=== PATIENT | male | born 1985 | race Caucasian/White ===

== ENCOUNTER 2017-06-08 18:36 | Emergency (ER) | payer OTHER ==
--- NOTE | 2017-06-08 20:53 | PD ---
HPI Chief Complaint: Psychiatric Symptoms Time Seen by Provider: 19:55 Travel History International Travel<30 days: No Contact w/Intl Traveler<30days: No History of Present Illness HPI Patient is a 31-year-old male that presented from [facility] in [place] for psychiatric evaluation. Patient is under a Farias for making suicidal ideations. He states that he does not have a current plan and has no prior attempts. He does report wanting to kill himself. Patient states for the last 6 weeks his symptoms have worsened. He reports alcohol addiction and the need to drink every 2-3 hours to avoid withdrawal. He reports increased anxiety secondary to this addiction. He has been drinking for approximately 10 years, he states he drinks 1/5 of vodka daily. He has no family, his parents are . Patient is currently undomiciled and is staying with friends. Symptom onset has been gradual, exacerbated with alcohol use. PFSH Past Medical History Medical History: Denies Significant Hx Social History Alcohol Use: Yes Tobacco Use: No Substance Use: No Allergies-Medications (Allergen,Severity, Reaction): Coded Allergies: No Known Allergies (Verified Allergy, Unknown, 06/08/17) Review of Systems Except as stated in HPI: all other systems reviewed are Neg Psychiatric: Positive: Depression, Suicidal Ideations, Substance Abuse Physical Exam Narrative GENERAL: Well-developed, well-nourished, alert male. Resting comfortably in no acute distress. SKIN: Warm and dry. HEAD: Atraumatic. Normocephalic. EYES: Pupils equal and round. No scleral icterus. No injection or drainage. ENT: No nasal bleeding or discharge. Mucous membranes pink and moist. NECK: Trachea midline. No JVD. CARDIOVASCULAR: Regular rate and rhythm. RESPIRATORY: No accessory muscle use. Clear to auscultation. Breath sounds equal bilaterally. GASTROINTESTINAL: Abdomen soft, non-tender, nondistended. Hepatic and splenic margins not palpable. MUSCULOSKELETAL: Extremities without clubbing, cyanosis, or edema. No obvious deformities. NEUROLOGICAL: Awake and alert. No obvious cranial nerve deficits. Motor grossly within normal limits. Five out of 5 muscle strength in the arms and legs. Normal speech. PSYCHIATRIC: Depressed mood and affect; insight and judgment normal. Data Data Orders Orders Psych Screen (06/08/17 19:52) [facility] Medical Decision Making Medical Screen Exam Complete: Yes Emergency Medical Condition: Yes Differential Diagnosis Mood disorder versus substance abuse versus depression versus anxiety versus other Narrative Course Patient is a 31-year-old male transferred from [facility] in [facility] under Farias act for psychiatric evaluation secondary to substance abuse. Medical records reviewed. Psych screen ordered. Patient was seen and evaluated in J pod. Patient is medically cleared for psychiatric evaluation. [facility] protocol initiated. Diagnosis Primary Impression: Medical clearance for psychiatric admission Condition: Stable Asia Zambrano Jun 08, 2017 20:53
[2017-06-08 20:55] VITALS: BP 142/101; PULSE 115; RESP 18; TEMP 97.2; O2SAT 97
[2017-06-08] MEDS ORDERED: LORazepam 2 MG TAB PO PRN (23:45)
[2017-06-08] MEDS ORDERED: ACETAMINOPHEN 325 MG TAB PO PRN (23:45)
[2017-06-08] MEDS ORDERED: ONDANSETRON ODT 4 MG TAB PO PRN (23:45)
[2017-06-08] MEDS ORDERED: LORazepam 2 MG/ML VIAL IV PUSH PRN ×4 (23:45)
[2017-06-08] MEDS ORDERED: FLUMAZENIL 0.5 MG/5 ML VIAL IV PUSH PRN (23:45)
[2017-06-09 00:07] VITALS: BP 122/79; PULSE 79; RESP 12
[2017-06-09 02:47] VITALS: BP 118/77; PULSE 95; RESP 18
[2017-06-09] MEDS: LORazepam 1 MG TAB PO PRN ×2 (04:50→12:27)
[2017-06-09 06:13] VITALS: BP 108/79; PULSE 88; RESP 17; O2SAT 97
[2017-06-09 12:31] VITALS: BP 123/82; PULSE 101; RESP 18; O2SAT 99
--- NOTE | 2017-06-09 13:41 | PD ---
Physical Exam Time Seen by Provider: 13:[address] Barker has evaluated the patient, lifted lang act and clear the patient for discharge. Data Data Last Documented VS Vital Signs Date Time Temp Pulse Resp B/P (MAP) Pulse Ox O2 Delivery O2 Flow Rate FiO2 06/09/17 12:31 101 18 123/82 (96) 99 Room Air 06/08/17 20:55 97.2 Orders Orders Psych Screen (06/08/17 19:52) Alcohol Withdrawal Asmt-Ciwa ONCE (06/08/17 23:38) Ondansetron Odt (Zofran Odt) (06/08/17 23:45) Acetaminophen (Tylenol) (06/08/17 23:45) Flumazenil Inj (Romazicon Inj) (06/08/17 23:45) Lorazepam (Ativan) (06/08/17 23:45) Lorazepam Inj (Ativan Inj) (06/08/17 23:45) Lorazepam (Ativan) (06/08/17 23:45) Lorazepam Inj (Ativan Inj) (06/08/17 23:45) Lorazepam Inj (Ativan Inj) (06/08/17 23:45) Lorazepam Inj (Ativan Inj) (06/08/17 23:45) Diet Regular Basic (06/09/17 Breakfast) Diet Regular Basic (06/09/17 Lunch) MDM Supervised Visit with ARMANI: No Narrative Course Dr. Barker has evaluated the patient, lifted lang act and clear the patient for discharge. Patient contracts safety. Denies suicidal or homicidal ideations. Patient will be provided community resource packet to /[facility] for follow-up. Has friends and family for support. Patient was medically cleared by alternate provider prior to psych screening. Patient has been evaluated by psychiatry and and is now cleared for discharge. Diagnosis Primary Impression: Alcohol abuse Referrals: [facility] (Out patient) [facility] Primary Care Physician Psychiatrist Heladio [facility] Patient Instructions: Abuse of Alcohol (ED), Alcohol Dependence (ED), Alcohol Intoxication (ED), General Instructions Additional Instruction: Contract safety to your self and others Stop drinking alcohol Follow-up with psychiatry Follow-up with primary care provider Follow-up with Jer Reese Return to the emergency department immediately with worsening of symptoms Med/Other Pt SpecificInfo: No Change to Meds, No Meds Exist/No RX given Disposition: 01 DISCHARGE HOME Condition: Stable Funmi Mata Jun 09, 2017 13:41
--- NOTE | 2017-06-09 14:48 | PD.PSY.CON ---
Provisional Diagnosis Admission Date [place] I. Alcohol induced mood disorder, alcohol use disorder History of Present Illness Service Psychiatry Consult Requested By ER team Reason for Consult Farias act Primary Care Physician No Primary Care Physician NEMESIO Patient is a 31-year-old male, homeless, single, no family or social support, unemployed, with psychiatric history of depression and anxiety, alcohol use disorder, no previous psychiatric hospitalizations, no previous suicidal attempts, no significant medical history, who presented from [facility] in [place] for psychiatric evaluation. Patient is under a Farias for making suicidal ideations. He states that he does not have a current plan and has no prior attempts. He does report wanting to kill himself. Patient states for the last 6 weeks his symptoms have worsened. He reports alcohol addiction and the need to drink every 2-3 hours to avoid withdrawal. He reports increased anxiety secondary to this addiction. He has been drinking for approximately 10 years, he states he drinks 1/5 of vodka daily. On the psychiatric evaluation today the patient is taking, with mild tremors and sweating. Patient denies suicidal and homicidal ideation, he denies visual and auditory hallucinations. The patient says that all he wants is go to detox today. Patient agrees to be sent to [facility]. Past Family Social History Coded Allergies: No Known Allergies (Verified Allergy, Unknown, 06/08/17) Family Psych History No family psychiatric history Social History Patient was born and raised in [place], he is homeless, single, unemployed, his highest level of education is high school Physical Exam Vital Signs Vital Signs Date Time Temp Pulse Resp B/P (MAP) Pulse Ox O2 Delivery O2 Flow Rate FiO2 06/09/17 14:02 06/09/17 12:31 101 18 99 Room Air 06/08/17 20:55 97.2 Mental Status Examination Appearance: Appropriate Consciousness: Alert Orientation: x4 Motor Activity: Normal gait Speech: Unremarkable Language: Adequate Fund of Knowledge: Adequate Attention and Concentration: Adequate Memory: Unremarkable Mood: Appropriate Affect: Appropriate Thought Process & Associations: Intact Thought Content: Appropriate Hallucination Type: None Delusion Type: None Suicidal Ideation: No Suicidal Plan: No Suicidal Intention: No Homicidal Ideation: No Homicidal Plan: No Homicidal Intention: No Insight: Adequate Judgment: Adequate Assessment & Plan Problem List: (1) Alcohol abuse with alcohol-induced mood disorder ICD Codes: F10.14 - Alcohol abuse with alcohol-induced mood disorder Assessment & Plan: At the moment of this evaluation the patient denies depression, denies suicidal and homicidal ideation, he denies visual and auditory hallucinations. The patient is motivated to be discharged to [facility] for detox. I would prescribed Ativan 2 mg by mouth stat for withdrawal symptoms. Farias act will be lifted. Patient will be transferred to [facility]. Assessment & Plan Estimated LOS: Brandon Ly MD Jun 09, 2017 14:48
== END 2017-06-09 14:06 | disposition home or self-care (01) ==
LOC: NEDAMB 18:36 → NEPJ 06-09 14:06
DX: F10.20 Alcohol dependence, uncomplicated (principal)
CPT/HCPCS: 96374; 99284; J2060

== ENCOUNTER 2017-07-03 22:30 | Inpatient (IN) | payer SELFPAY ==
[~2017-07-03] VITALS: Ht 190.5 cm; Wt 86.0 kg
[2017-07-03 22:35] VITALS: BP 154/103; PULSE 104; RESP 16; O2SAT 100
[2017-07-03] MEDS ORDERED: SODIUM CHLORIDE 0.9% FLUSH 10 ML FLUSH IV FLUSH PRN (22:45)
--- NOTE | 2017-07-03 23:08 | RADRPT ---
EXAM DATE/TIME: 07/03/2017 22:50 [facility] COMPARISON: No previous studies available for comparison. INDICATIONS : Altered mental status; ETOH. RADIATION DOSE: 56.35 CTDIvol (mGy) MEDICAL HISTORY : None SURGICAL HISTORY : None. ENCOUNTER: Initial ACUITY: 1 day PAIN SCALE: Non-responsive LOCATION: cranial TECHNIQUE: Multiple contiguous axial images were obtained of the head. Using automated exposure control and adj ustment of the mA and/or kV according to patient size, radiation dose was kept as low as reasonably a chievable to obtain optimal diagnostic quality images. DICOM format image data is available electro nically for review and comparison. FINDINGS: The patient's head is canted in the gantry creating asymmetries. CEREBRUM: The ventricles and sulci are prominent suggesting mild central and cortical atrophy. No evidence of midline shift, mass lesion, hemorrhage or acute infarction. No extra-axial fluid collections are see n. POSTERIOR FOSSA: The cerebellum and brainstem are intact. The 4th ventricle is midline. The cerebellopontine angle i s unremarkable. EXTRACRANIAL: The visualized portion of the orbits is intact. SKULL: The calvaria is intact. No evidence of skull fracture. CONCLUSION: Mild atrophy. No acute findings in the brain. Cassius Sanchez MD on July 03, 2017 at 23:03 Board Certified Radiologist. This report was verified electronically.
[2017-07-03] MEDS ORDERED: ONDANSETRON HCL 4 MG/2 ML VIAL IV PUSH ONE (23:15)
[2017-07-03 23:25] VITALS: O2SAT 99
[2017-07-03 23:29] LABS: AUTOMATED NEUTROPHIL # 10.6 TH/MM3 (1.8-7.7); BASOPHIL % 0.3 % (0.0-2.0); EOSINOPHIL % 0.1 % (0.0-4.0); HEMATOCRIT 32.6 % (39.0-51.0); HEMOGLOBIN 11.6 GM/DL (13.0-17.0); LYMPH % 4.7 % (9.0-44.0); LYMPHOCYTE # 0.6 TH/MM3 (1.0-4.8); MEAN CELL VOLUME 96.5 FL (80.0-100.0); MEAN CORPUSCULAR HEMOGLOBIN 34.3 PG (27.0-34.0); MEAN CORPUSCULAR HGB CONC 35.6 % (32.0-36.0); MEAN PLATELET VOLUME 7.3 FL (7.0-11.0); MONO % 8.1 % (0.0-8.0); NEUT % 86.8 % (16.0-70.0); PLATELET COUNT 280 TH/MM3 (150-450); RED BLOOD COUNT 3.37 MIL/MM3 (4.50-5.90); RED CELL DISTRIBUTION WIDTH 13.6 % (11.6-17.2); WHITE BLOOD COUNT 12.3 TH/MM3 (4.0-11.0)
--- NOTE | 2017-07-03 23:31 | PD ---
HPI Chief Complaint: Alcohol/Drug Intoxication Time Seen by Provider: 22:35 Travel History International Travel<30 days: No Contact w/Intl Traveler<30days: No Traveled to known affect area: No History of Present Illness HPI 31-year-old male brought in by ambulance after being found asleep on the hospital grounds. The patient does not provide any history to EMS. Upon arrival he is awake, however seems to be avoiding any interaction. He does tell me his name and admits to drinking alcohol today. He does not provide any further history. [facility] Social History Alcohol Use: Yes Tobacco Use: No Substance Use: Yes Allergies-Medications (Allergen,Severity, Reaction): Coded Allergies: No Known Allergies (Verified Allergy, Unknown, 06/08/17) Reported Meds & Prescriptions Reported Meds & Active Scripts Active Active Prescriptions or Reported Medications Unobtainable Review of Systems ROS Limitations: Intoxication Physical Exam Narrative GENERAL: Well-developed, well-nourished, awake, appears intoxicated, no apparent distress. SKIN: Focused skin assessment warm/dry. No lacerations, abrasions, or ecchymosis. HEAD: Atraumatic. Normocephalic. EYES: Pupils equal, round, 3 mm, reactive to light. No scleral icterus. No injection or drainage. ENT: No nasal bleeding or discharge. Mucous membranes pink and moist. NECK: Trachea midline. No JVD. No nuchal rigidity. CARDIOVASCULAR: Regular rate and rhythm. RESPIRATORY: No accessory muscle use. Clear to auscultation. Breath sounds equal bilaterally. GASTROINTESTINAL: Abdomen soft, non-tender, nondistended. MUSCULOSKELETAL: No obvious deformities. No clubbing. No cyanosis. No edema. NEUROLOGICAL: Awake and alert. No obvious cranial nerve deficits. Motor grossly within normal limits. Normal speech. PSYCHIATRIC: Intoxicated Data Data Last Documented VS Vital Signs Date Time Temp Pulse Resp B/P (MAP) Pulse Ox O2 Delivery O2 Flow Rate FiO2 07/04/17 00:34 98.8 07/03/17 23:25 99 Room Air 07/03/17 22:35 104 16 154/103 (120) Orders Orders Complete Blood Count With Diff (07/03/17 22:35) Comprehensive Metabolic Panel (07/03/17 22:35) Prothrombin Time / Inr (Pt) (07/03/17 22:35) Act Partial Throm Time (Ptt) (07/03/17 22:35) Iv Access Insert/Monitor (07/03/17 22:35) Ecg Monitoring (07/03/17 22:35) Oximetry (07/03/17 22:35) Sodium Chloride 0.9% Flush (Ns Flush) (07/03/17 22:45) Alcohol (Ethanol) (07/03/17 22:35) Drug Screen, Random Urine (07/03/17 22:35) Ct Brain W/O Iv Contrast(Rout) (07/03/17 ) Ondansetron Inj (Zofran Inj) (07/03/17 23:15) Potassium Chlor 20 Meq Premix (Kcl 20 Me (07/04/17 00:15) Sodium Chlor 0.9% 1000 Ml Inj (Ns 1000 M (07/04/17 00:11) Arterial Blood Gas (Abg) (07/04/17 ) Salicylates (Aspirin) (07/04/17 01:03) Labs Laboratory Tests Test 07/03/17 22:19 07/03/17 23:59 07/04/17 00:40 White Blood Count 12.3 TH/MM3 Red Blood Count 3.37 MIL/MM3 Hemoglobin 11.6 GM/DL Hematocrit 32.6 % Mean Corpuscular Volume 96.5 FL Mean Corpuscular Hemoglobin 34.3 PG Mean Corpuscular Hemoglobin Concent 35.6 % Red Cell Distribution Width 13.6 % Platelet Count 280 TH/MM3 Mean Platelet Volume 7.3 FL Neutrophils (%) (Auto) 86.8 % Lymphocytes (%) (Auto) 4.7 % Monocytes (%) (Auto) 8.1 % Eosinophils (%) (Auto) 0.1 % Basophils (%) (Auto) 0.3 % Neutrophils # (Auto) 10.6 TH/MM3 Lymphocytes # (Auto) 0.6 TH/MM3 Monocytes # (Auto) 1.0 TH/MM3 Eosinophils # (Auto) 0.0 TH/MM3 Basophils # (Auto) 0.0 TH/MM3 CBC Comment DIFF FINAL Differential Comment Prothrombin Time 11.8 SEC Prothromb Time International Ratio 1.2 RATIO Activated Partial Thromboplast Time 26.8 SEC Blood Urea Nitrogen 17 MG/DL Creatinine 1.24 MG/DL Random Glucose 188 MG/DL Total Protein 7.6 GM/DL Albumin 3.0 GM/DL Calcium Level 9.1 MG/DL Alkaline Phosphatase 134 U/L Aspartate Amino Transf (AST/SGOT) 83 U/L Alanine Aminotransferase (ALT/SGPT) 54 U/L Total Bilirubin 1.4 MG/DL Sodium Level 123 MEQ/L Potassium Level 2.5 MEQ/L Chloride Level 72 MEQ/L Carbon Dioxide Level 32.5 MEQ/L Anion Gap 19 MEQ/L Estimat Glomerular Filtration Rate 68 ML/MIN Ethyl Alcohol Level LESS THAN 3 MG/DL Urine Opiates Screen NEG Urine Barbiturates Screen NEG Urine Amphetamines Screen NEG Urine Benzodiazepines Screen NEG Urine Cocaine Screen NEG Urine Cannabinoids Screen POS Blood Gas Puncture Site RT RADIAL Blood Gas Patient Temperature 98.6 Blood Gas HCO3 39 mmol/L Blood Gas Base Excess 15.9 mmol/L Blood Gas Oxygen Saturation 94 % Arterial Blood pH 7.61 Arterial Blood Partial Pressure CO2 39 mmHg Arterial Blood Partial Pressure O2 71 mmHG Arterial Blood Oxygen Content 14.6 Vol % Arterial Blood Carboxyhemoglobin 1.6 % Arterial Blood Methemoglobin 0.5 % Blood Gas Hemoglobin 11.0 G/DL Oxygen Delivery Device ROOM AIR Blood Gas Inspired Oxygen 21 % [facility] Medical Decision Making Medical Screen Exam Complete: Yes Emergency Medical Condition: Yes Medical Record Reviewed: Yes Differential Diagnosis Alcohol intoxication, drug intoxication, intracranial abnormality, metabolic abnormality Narrative Course Initial vital signs show heart rate 104, blood pressure 154/103, pulse ox 99% on room air CBC: WBC 12.3, hemoglobin 11.6, hematocrit 32.6, platelets 280, neutrophils 86%. CMP is remarkable for sodium 123, potassium 2.5, chloride 72, bicarb 32.5, anion gap 19, random glucose 188. Alcohol level is negative. CT head: Mild atrophy. No acute findings in the brain. Patient is responsive to deep painful stimuli. There is no nuchal rigidity on exam. Again he has not provided any history. He does tell me his name. There are no focal findings on exam. ABG shows pH 7.61, PCO2 39, PO2 71, base excess 15.9, bicarb 39 40 mEq of parenteral potassium ordered. The patient was given a liter of normal saline bolus and started on normal saline 1 25 cc/h. Case was discussed with clinical trial leader Dr. Melendrez given extreme metabolic abnormality as well as altered mental status. She will admit the patient to her service. Diagnosis Primary Impression: Metabolic alkalosis Additional Impressions: Hypokalemia Hyponatremia Altered mental status Qualified Codes: R40.1 - Stupor Admitting Information Admitting Physician Requests: Admit Scripts Unable to Obtain Active Prescriptions or Reported Meds Vishnu Lynne MD Jul 03, 2017 23:31
[2017-07-03 23:48] LABS: INTERNATIONAL NORMALIZED RATIO 1.2 RATIO; PROTHROMBIN TIME - PATIENT 11.8 SEC (9.8-11.6)
[2017-07-04] VITALS (15 sets, daily range): BP systolic 113–139; BP diastolic 73–90; PULSE 72–99; RESP 14–20; TEMP 98–98.8; O2SAT 98–100
[2017-07-04 00:03] LABS: ALKALINE PHOSPHATASE 134 U/L (45-117); ALT (GPT) 54 U/L (12-78); AST (GOT) 83 U/L (15-37); BICARBONATE 32.5 MEQ/L (21.0-32.0); BLOOD UREA NITROGEN 17 MG/DL (7-18); CALCIUM 9.1 MG/DL (8.5-10.1); CHLORIDE 72 MEQ/L (98-107); CREATININE 1.24 MG/DL (0.60-1.30); GLOMERULAR FILTRATION RATE 68 ML/MIN (>89); GLUCOSE,RANDOM 188 MG/DL (74-106); TOTAL BILIRUBIN ADULT 1.4 MG/DL (0.2-1.0); TOTAL PROTEIN 7.6 GM/DL (6.4-8.2)
[2017-07-04 00:07] LABS: SODIUM (NA) 123 MEQ/L (136-145)
[2017-07-04] MEDS ORDERED: SODIUM CHLOR 0.9% 1000 ML INJ 1,000 ML IV SCH (00:11)
[2017-07-04] MEDS: POTASSIUM CHLOR 20 MEQ PREMIX 100 ML IV SCH ×6 (00:50→18:30)
[2017-07-04] MEDS ORDERED: LACTULOSE SYRUP 20 GM/30 ML CUP PO PRN (01:30)
[2017-07-04] MEDS ORDERED: BISACODYL 10 MG SUPP RECTAL PRN (01:30)
[2017-07-04] MEDS ORDERED: SENNOSIDES 8.6 MG TAB PO PRN (01:30)
[2017-07-04] MEDS ORDERED: RESP: ALBUTEROL 2.5 MG/3 ML NEB (PRN) INH (01:30)
[2017-07-04] MEDS ORDERED: MISCELLANEOUS NURSING INFORMATION XX SCH (01:30)
[2017-07-04] MEDS ORDERED: MAGNESIUM HYDROXIDE SUSP 30 ML CUP PO PRN (01:30)
[2017-07-04] MEDS ORDERED: SODIUM CHLORIDE 0.9% FLUSH 10 ML FLUSH IV FLUSH PRN ×2 (01:30→04:45)
[2017-07-04] MEDS ORDERED: CHLORHEXIDINE GLUCONATE 2 % 1 PACK (2 CLOTHS) TOP PRN (01:30)
[2017-07-04 01:48] LABS: MAGNESIUM 1.6 MG/DL (1.5-2.5)
[2017-07-04 01:53] LABS: BILIRUBIN, URINE SMALL (NEG); BLOOD, URINE NEG (NEG); CREATININE, RANDOM URINE 202.8 MG/DL; GLUCOSE,URINE TRACE mg/dL (NEG); HYALINE CAST, URINE 28 /lpf (RARE); KETONE, URINE 10 mg/dL (NEG); MUCUS URINE MANY /lpf (OCC); NITRITE,URINE NEG (NEG); PH, URINE 5.5 (5.0-8.5); SODIUM,RANDOM URINE 36 MEQ/L; SQUAMOUS EPITHELIAL CELL URINE <1 /hpf (0-5); URINE COLOR ORANGE (YELLW/STRAW); URINE LEUKOCYTE ESTERASE NEG (NEG)
[2017-07-04 02:06] LABS: ACETAMINOPHEN 17.3 MCG/ML (10.0-30.0)
[2017-07-04] MEDS: NS + KCL 20 MEQ INJ 1,000 ML IV SCH ×3 (02:20→22:21)
[2017-07-04] MEDS: CHLORHEXIDINE GLUCONATE 2 % 1 PACK (2 CLOTHS) TOP SCH (03:50)
[2017-07-04] MEDS ORDERED: LORazepam 2 MG/ML VIAL IV PUSH PRN (04:45)
[2017-07-04] MEDS ORDERED: FLUMAZENIL 0.5 MG/5 ML VIAL IV PUSH PRN (04:45)
[2017-07-04 04:46] LABS: ALKALINE PHOSPHATASE 126 U/L (45-117); ALT (GPT) 51 U/L (12-78); AST (GOT) 75 U/L (15-37); BICARBONATE 37.4 MEQ/L (21.0-32.0); BLOOD UREA NITROGEN 18 MG/DL (7-18); CALCIUM 8.8 MG/DL (8.5-10.1); CHLORIDE 75 MEQ/L (98-107); CREATININE 0.66 MG/DL (0.60-1.30); GLOMERULAR FILTRATION RATE 142 ML/MIN (>89); GLUCOSE,RANDOM 111 MG/DL (74-106); SODIUM (NA) 125 MEQ/L (136-145); TOTAL BILIRUBIN ADULT 1.4 MG/DL (0.2-1.0); TOTAL PROTEIN 6.7 GM/DL (6.4-8.2)
[2017-07-04] MEDS: ENOXAPARIN SODIUM 40 MG/0.4 ML SYRINGE SQ SCH (06:00)
[2017-07-04] MEDS: SODIUM CHLORIDE 0.9% FLUSH 10 ML FLUSH IV FLUSH SCH ×2 (08:46→22:21)
[2017-07-04] MEDS: FOLIC ACID 1 MG TAB PO SCH (08:46)
[2017-07-04] MEDS: FAMOTIDINE 20 MG TAB PO SCH ×2 (08:47→22:21)
[2017-07-04] MEDS: DOCUSATE SODIUM 50 MG/SENNA 8.6 MG TAB PO SCH ×2 (08:47→22:21)
[2017-07-04] MEDS: MULTIVITAMIN TAB PO SCH (08:47)
[2017-07-04] MEDS ORDERED: FAMOTIDINE 20 MG/2 ML VIAL IV PUSH SCH (09:00)
[2017-07-04] MEDS ORDERED: SODIUM CHLORIDE 0.9% FLUSH 10 ML FLUSH IV FLUSH SCH (09:00)
[2017-07-04] MEDS: THIAMINE INJ 100 MG in SODIUM CHLORIDE 0.9% INJ 100 ML IV SCH (09:47)
--- NOTE | 2017-07-04 10:04 | RADRPT ---
EXAM DATE/TIME: 07/04/2017 08:49 [facility] COMPARISON: No previous studies available for comparison. INDICATIONS : Increased lab values. MEDICAL HISTORY : ETOH abuse. SURGICAL HISTORY : None. ENCOUNTER: Initial ACUITY: 1 day PAIN SCORE: Nonresponsive. LOCATION: Abdomen. MEASUREMENTS: LIVER: 17.1 cm length COMMON DUCT: 4 mm RIGHT KIDNEY: 11.9 x 6.0 x 6.1 cm SPLEEN: 10.6 cm length FINDINGS: LIVER: Echogenic, apparent fatty liver without ductal dilatation. COMMON DUCT: No intraluminal mass or stone visualized. GALLBLADDER: Common gallbladder without stones or tenderness. Sludge is evident. PANCREAS: The visualized portions are within normal limits. RIGHT KIDNEY: No hydronephrosis, stone or mass. SPLEEN: No focal lesion. CONCLUSION: 1. Echogenic liver probably fatty infiltration 2. The gallbladder is prominent without stones.Sludge is evident. Armando Wolfe MD FACR on July 04, 2017 at 10:02 Board Certified Radiologist. This report was verified electronically.
--- NOTE | 2017-07-04 10:27 | HHI.HP ---
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 Documentation is being performed later 31-year-old male with past medical history of alcohol dependence, homelessness, depression, anxiety. He was brought into [facility] emergency department after he was found asleep outside in hospital. He does not provide any medical history. Review of medical records indicates he was transferred from [facility] under [facility] and evaluated by psychiatry 06/09/17. He was discharged to [facility] for detox. He is hyponatremic with sodium of 123, hypokalemic at 2.5, metabolic alkalosis at 32.5. CT brain is negative. Alcohol level was 3. Clinical care medicine consultation has been requested. Review of Systems ROS Limitations: Clinical Condition Past Family Social History Allergies: Coded Allergies: No Known Allergies (Verified Allergy, Unknown, 06/08/17) Past Medical History Anxiety Depression Alcohol abuse Tobacco abuse Marijuana abuse Past Surgical History Patient does not cooperate with providing past surgical history Reported Medications None Family History Unable to obtain secondary to patient's clinical condition. Social History Patient is not cooperative currently with providing this history. Reviewed EMR which states he drinks 1/5 of vodka daily and has been drinking heavily for 10 years. He has a history of alcohol withdrawal symptoms. He is homeless. Born and raised in [place]. Highest level of education high school. Physical Exam Vital Signs Vital Signs Date Time Temp Pulse Resp B/P (MAP) Pulse Ox O2 Delivery O2 Flow Rate FiO2 07/04/17 08:00 98.0 89 20 136/88 (104) 07/04/17 08:00 89 07/04/17 06:00 89 07/04/17 04:00 94 07/04/17 03:39 98.1 94 18 130/90 (103) 100 07/04/17 03:29 07/04/17 02:32 72 16 139/78 (98) 100 Room Air 07/04/17 01:52 98 07/04/17 01:18 79 16 139/79 (99) 98 Room Air 07/04/17 00:34 98.8 07/03/17 23:25 99 Room Air 07/03/17 22:35 104 16 154/103 (120) 100 Physical Exam GENERAL: Thin well-developed male who is lying in [facility] bed. SKIN: Warm and dry. HEAD: Atraumatic. Normocephalic. EYES: Pupils equal and round, 5 mm and reactive bilaterally.. No scleral icterus. No injection or drainage. ENT: No nasal bleeding or discharge. Mucous membranes pink and moist. NECK: Trachea midline. No JVD. No meningismus CARDIOVASCULAR: Regular rate and rhythm. No murmurs rubs or gallops. RESPIRATORY: No accessory muscle use. Clear to auscultation. Breath sounds equal bilaterally. GASTROINTESTINAL: Abdomen soft, non-tender, nondistended. Bowel sounds present. Hepatic and splenic margins not palpable. MUSCULOSKELETAL: Extremities without clubbing, cyanosis, or edema. No obvious deformities. NEUROLOGICAL: Eyes are open. He mumbles a few words; says he is "all right". Does not answer questions of orientation. Moves all extremities but not to command. Localizes bilateral upper extremities to noxious stimuli There appears to be a functional component to his behavior. He rolls his eyes back when I try to look at them, but before that he was looking around with conjugate gaze. He closes his eyes and drops his head when you walk in the room , but when you leave he picks his head up and starts looking around. Laboratory Laboratory Tests Test 07/03/17 22:19 07/03/17 23:59 07/04/17 00:40 07/04/17 01:25 White Blood Count 12.3 Red Blood Count 3.37 Hemoglobin 11.6 Hematocrit 32.6 Mean Corpuscular Volume 96.5 Mean Corpuscular Hemoglobin 34.3 Mean Corpuscular Hemoglobin Concent 35.6 Red Cell Distribution Width 13.6 Platelet Count 280 Mean Platelet Volume 7.3 Neutrophils (%) (Auto) 86.8 Lymphocytes (%) (Auto) 4.7 Monocytes (%) (Auto) 8.1 Eosinophils (%) (Auto) 0.1 Basophils (%) (Auto) 0.3 Neutrophils # (Auto) 10.6 Lymphocytes # (Auto) 0.6 Monocytes # (Auto) 1.0 Eosinophils # (Auto) 0.0 Basophils # (Auto) 0.0 CBC Comment DIFF FINAL Differential Comment Prothrombin Time 11.8 Prothromb Time International Ratio 1.2 Activated Partial Thromboplast Time 26.8 Blood Urea Nitrogen 17 18 Creatinine 1.24 0.66 Random Glucose 188 111 Total Protein 7.6 6.7 Albumin 3.0 3.0 Calcium Level 9.1 8.8 Alkaline Phosphatase 134 126 Aspartate Amino Transf (AST/SGOT) 83 75 Alanine Aminotransferase (ALT/SGPT) 54 51 Total Bilirubin 1.4 1.4 Sodium Level 123 125 Potassium Level 2.5 2.7 Chloride Level 72 75 Carbon Dioxide Level 32.5 37.4 Anion Gap 19 13 Estimat Glomerular Filtration Rate 68 142 Magnesium Level 1.6 Lipase 752 Thyroid Stimulating Hormone 3rd Gen 1.700 Salicylates Level LESS THAN 1.7 Acetaminophen Level 17.3 Ethyl Alcohol Level LESS THAN 3 B-Hydroxybutyrate 0.16 Urine Color ORANGE Urine Turbidity CLEAR Urine pH 5.5 Urine Specific [place] 1.023 Urine Protein 30 Urine Glucose (UA) TRACE Urine Ketones 10 Urine Occult Blood NEG Urine Nitrite NEG Urine Bilirubin SMALL Urine Urobilinogen 4.0 Urine Leukocyte Esterase NEG Urine RBC 1 Urine WBC 5 Urine Squamous Epithelial Cells <1 Urine Hyaline Casts 28 Urine Mucus MANY Microscopic Urinalysis Comment CULT NOT INDICATED Urine Osmolality 556 Urine Random Creatinine 202.8 Urine Random Sodium 36 Urine Random Chloride LESS THAN 10 Urine Opiates Screen NEG Urine Barbiturates Screen NEG Urine Amphetamines Screen NEG Urine Benzodiazepines Screen NEG Urine Cocaine Screen NEG Urine Cannabinoids Screen POS Blood Gas Puncture Site RT RADIAL Blood Gas Patient Temperature 98.6 Blood Gas HCO3 39 Blood Gas Base Excess 15.9 Blood Gas Oxygen Saturation 94 Arterial Blood pH 7.61 Arterial Blood Partial Pressure CO2 39 Arterial Blood Partial Pressure O2 71 Arterial Blood Oxygen Content 14.6 Arterial Blood Carboxyhemoglobin 1.6 Arterial Blood Methemoglobin 0.5 Blood Gas Hemoglobin 11.0 Oxygen Delivery Device ROOM AIR Blood Gas Inspired Oxygen 21 Serum Osmolality 264 Lactic Acid Level 2.7 Total Creatine Kinase 30 Random Cortisol 27.8 Test 07/04/17 03:45 Nasal Screen MRSA (PCR) MRSA NOT DETECTED Result Diagram: 07/03/179 07/04/17 0125 Caprini VTE Risk Assessment Caprini Risk Assessment Model Point Value = 1 Point Value = 2 Point Value = 3 Point Value = 5 Age 41-60 Minor surgery BMI > 25 kg/m2 Swollen legs Varicose veins or History of unexplained or recurrent spontaneous Oral contraceptives or hormone replacement Sepsis (< 1 month) Serious lung disease, including pneumonia (< 1 month) Abnormal pulmonary function Acute myocardial infarction Congestive heart failure (< 1 month) History of inflammatory bowel disease Medical patient at bed rest Age 61-74 Arthroscopic surgery Major open surgery (> 45 min) Laparoscopic surgery (> 45 min) Malignancy Confined to bed (> 72 hours) Immobilizing plaster cast Central venous access Age >= 75 History of VTE Family history of VTE Factor V Leiden Prothrombin [id number] Lupus anticoagulant Anticardiolipin antibodies Elevated serum homocysteine Heparin-induced thrombocytopenia Other congenital or acquired thrombophilia Stroke (< 1 month) Elective arthroplasty Hip, pelvis, or leg fracture Acute spinal cord injury (< 1 month) Prophylaxis Regimen Total Risk Factor Score Risk Level Prophylaxis Regimen 0-1 Low Early ambulation 2 Moderate Order ONE of the following: *Sequential Compression Device (SCD) *Heparin 5000 units SQ BID 3-4 Higher Order ONE of the following medications: *Heparin 5000 units SQ TID *Enoxaparin/Lovenox 40 mg SQ daily (WT < 150 kg, CrCl > 30 mL/min) *Enoxaparin/Lovenox 30 mg SQ daily (WT < 150 kg, CrCl > 10-29 mL/min) *Enoxaparin/Lovenox 30 mg SQ BID (WT < 150 kg, CrCl > 30 mL/min) AND/OR *Sequential Compression Device (SCD) 5 or more Highest Order ONE of the following medications: *Heparin 5000 units SQ TID (Preferred with Epidurals) *Enoxaparin/Lovenox 40 mg SQ daily (WT < 150 kg, CrCl > 30 mL/min) *Enoxaparin/Lovenox 30 mg SQ daily (WT < 150 kg, CrCl > 10-29 mL/min) *Enoxaparin/Lovenox 30 mg SQ BID (WT < 150 kg, CrCl > 30 mL/min) AND *Sequential Compression Device (SCD) Assessment and Plan Assessment and Plan NEURO: Alcohol dependence Anxiety Depression AMS - appears to have a functional component. Doubt hyponatremia at this level is affecting mental status CT brain - negative EtOH level negative UDS + THC Obtain APAP and salicylate level Obtain serum osm, no osmole gap. Thiamine/multivitamin/folic acid CIWA protocol RESP: On RA. CV: Monitor hemodynamic GI: AST, bilirubin, alkaline phosphatase elevated. Vomiting Check liver ultrasound. Check lipase N.p.o. until mental status improves FEN/RENAL: Hyponatremia of unknown chronicity Hypokalemia Metabolic alkalemia Could have component chronic hyponatremia secondary to alcohol abuse, however obtained urine electrolytes and workup which indicate pre-renal state c/w dehydration. Per Dr. Lynne, vomiting in ED which could explain hypokalemia, hypochloremia, and contraction metabolic alkalosis (with urine chloride low) 0.9 NaCl with 20 mg of KCl per liter at 100 mL/h. Received potassium chloride 40 mg once IV. Potassium should come up some with correction of metabolic alkalosis which should occur with fluid resuscitation.. ID: UA negative. No respiratory symptoms. Monitor for signs and symptoms of infection. HEME: Anemia of unknown chronicity ENDO: Acute hyperglycemia. Monitor and use low-dose insulin if needed Check TSH and cortisol in view of hyponatremia which were normal PROPH: SCDs/Lovenox 40 mg subcut daily for DVT prophylaxis. Famotidine for stress ulcer prophylaxis and probable gastritis. ACCESS: Peripheral IV providing adequate access at this time. Level 3 H&P Consult hospitalist to assume care 07/05/17 Yesica Melendrez MD Jul 04, 2017 10:27
[2017-07-04] MEDS ORDERED: POTASSIUM CHLORIDE 25 MEQ EFFERVESCENT TAB PO ONE (11:00)
[2017-07-04] MEDS ORDERED: POTASSIUM CHLORIDE 25 MEQ EFFERVESCENT TAB PO PRN (11:00)
[2017-07-04] MEDS ORDERED: POTASSIUM CHLOR 20 MEQ PREMIX 100 ML IV PRN (11:00)
[2017-07-04] MEDS ORDERED: MAGNESIUM SULFATE INJ 2 GM in SODIUM CHLORIDE 0.9% INJ 96 ML IV PRN (11:00)
[2017-07-04] MEDS ORDERED: POTASSIUM CHLOR 40 MEQ PREMIX 100 ML IV PRN ×2 (11:00)
[2017-07-04] MEDS ORDERED: SODIUM PHOSPHATE INJ 30 MMOL in SODIUM CHLOR 0.9% 250 ML INJ 240 ML IV PRN (11:00)
[2017-07-04] MEDS ORDERED: POTASSIUM PHOSPHATE MONOBASIC 500 MG TAB PO/TUBE PRN (11:00)
[2017-07-04] MEDS ORDERED: MAGNESIUM OXIDE 400 MG TAB PO PRN (11:00)
[2017-07-04] MEDS ORDERED: POTASSIUM PHOSPHATE MONOBASIC 500 MG TAB PO PRN (11:00)
[2017-07-04] MEDS ORDERED: MAGNESIUM SULFATE INJ 4 GM in SODIUM CHLORIDE 0.9% INJ 92 ML IV PRN (11:00)
[2017-07-04] MEDS ORDERED: POTASSIUM CHLOR 40 MEQ PREMIX 100 ML IV ONE ×2 (11:00→15:00)
[2017-07-04] MEDS ORDERED: POTASSIUM PHOSPHATE INJ 30 MMOL in SODIUM CHLOR 0.9% 250 ML INJ 250 ML IV PRN (11:00)
[2017-07-04] MEDS: LORazepam 2 MG TAB PO PRN (14:30)
[2017-07-04] MEDS ORDERED: FAMOTIDINE 20 MG/2 ML VIAL IV PUSH PRN (20:00)
[2017-07-04] MEDS: LORazepam 2 MG/ML VIAL IV PUSH PRN (22:47)
[2017-07-05] VITALS (12 sets, daily range): BP systolic 102–130; BP diastolic 69–88; PULSE 84–114; RESP 16–27; TEMP 97.9–98.9; O2SAT 96–98
[2017-07-05 02:11] LABS: AUTOMATED NEUTROPHIL # 3.4 TH/MM3 (1.8-7.7); BASOPHIL # 0.1 TH/MM3 (0-0.2); BASOPHIL % 1.1 % (0.0-2.0); EOSINOPHIL # 0.1 TH/MM3 (0-0.4); EOSINOPHIL % 2.5 % (0.0-4.0); HEMOGLOBIN 9.9 GM/DL (13.0-17.0); LYMPHOCYTE # 1.7 TH/MM3 (1.0-4.8); MEAN CELL VOLUME 98.9 FL (80.0-100.0); MEAN CORPUSCULAR HEMOGLOBIN 34.9 PG (27.0-34.0); MEAN CORPUSCULAR HGB CONC 35.3 % (32.0-36.0); MEAN PLATELET VOLUME 7.2 FL (7.0-11.0); MONO % 11.7 % (0.0-8.0); MONOCYTE # 0.7 TH/MM3 (0-0.9); NEUT % 56.7 % (16.0-70.0); PLATELET COUNT 259 TH/MM3 (150-450); RED BLOOD COUNT 2.83 MIL/MM3 (4.50-5.90); RED CELL DISTRIBUTION WIDTH 13.9 % (11.6-17.2); WHITE BLOOD COUNT 6.1 TH/MM3 (4.0-11.0)
[2017-07-05 02:31] LABS: ALBUMIN 2.4 GM/DL (3.4-5.0); ALKALINE PHOSPHATASE 114 U/L (45-117); ALT (GPT) 48 U/L (12-78); AST (GOT) 114 U/L (15-37); BICARBONATE 31.5 MEQ/L (21.0-32.0); BLOOD UREA NITROGEN 24 MG/DL (7-18); CHLORIDE 98 MEQ/L (98-107); CREATININE 0.71 MG/DL (0.60-1.30); GLOMERULAR FILTRATION RATE 130 ML/MIN (>89); GLUCOSE,RANDOM 105 MG/DL (74-106); MAGNESIUM 1.7 MG/DL (1.5-2.5); SODIUM (NA) 135 MEQ/L (136-145); TOTAL BILIRUBIN ADULT 0.6 MG/DL (0.2-1.0); TOTAL PROTEIN 6.2 GM/DL (6.4-8.2)
[2017-07-05] MEDS: CHLORHEXIDINE GLUCONATE 2 % 1 PACK (2 CLOTHS) TOP SCH (03:33)
[2017-07-05] MEDS: POTASSIUM CHLOR 20 MEQ PREMIX 100 ML IV PRN ×2 (03:33→09:02)
[2017-07-05] MEDS: LORazepam 2 MG/ML VIAL IV PUSH PRN ×4 (03:47→20:43)
[2017-07-05] MEDS: ENOXAPARIN SODIUM 40 MG/0.4 ML SYRINGE SQ SCH (05:38)
[2017-07-05] MEDS: NS + KCL 20 MEQ INJ 1,000 ML IV SCH ×2 (08:51→17:12)
[2017-07-05] MEDS: DOCUSATE SODIUM 50 MG/SENNA 8.6 MG TAB PO SCH ×2 (08:52→20:43)
[2017-07-05] MEDS: FAMOTIDINE 20 MG TAB PO SCH ×2 (08:52→20:44)
[2017-07-05] MEDS: MULTIVITAMIN TAB PO SCH (08:52)
[2017-07-05] MEDS: SODIUM CHLORIDE 0.9% FLUSH 10 ML FLUSH IV FLUSH SCH ×2 (08:52→20:43)
[2017-07-05] MEDS: FOLIC ACID 1 MG TAB PO SCH (08:52)
[2017-07-05] MEDS: THIAMINE INJ 100 MG in SODIUM CHLORIDE 0.9% INJ 100 ML IV SCH (08:52)
[2017-07-05] MEDS ORDERED: PNEUMOCOCCAL POLYVALENT INJ 25 MCG/0.5 ML SYR IM ONE (09:00)
[2017-07-05] MEDS: LORazepam 2 MG TAB PO PRN (09:22)
[2017-07-05] MEDS ORDERED: INFLUENZA VIRUS VACCINE (QUADRIVALENT) 0.5 ML SYR IM ONE (10:00)
--- NOTE | 2017-07-05 15:11 | PD.PSY.CON ---
Provisional Diagnosis Admission Date Jul 04, 2017 at 01:09 [place] I. Alcohol induced mood disorder, alcohol use disorder History of Present Illness Service Psychiatry Consult Requested By Critical chart Reason for Consult Alcohol induced mood disorder Primary Care Physician Unknown HPI The patient is a 31-year-old man, homeless, single, no family or social support, unemployed, with psychiatric history of depression and anxiety, alcohol use disorder, no previous psychiatric hospitalizations, no previous suicidal attempts, no significant medical history, He was brought into [facility] emergency department after he was found asleep outside in hospital. He does not provide any medical history. Review of medical records indicates he was transferred from [facility] under [facility] and evaluated by psychiatry 06/09/17, he was seen by me then and transfer to [facility] for detox. He is hyponatremic with sodium of 123, hypokalemic at 2.5, metabolic alkalosis at 32.5. CT brain is negative. Alcohol level was 3. On psychiatric evaluation today the patient is calm, cooperative, reports that he wants to get better, he wants to have a normal life , but he needs to quit alcohol, and he doesnt know how. He reports alcohol addiction and the need to drink every 2-3 hours to avoid withdrawal. He reports increased anxiety and depression secondary to this addiction. He has been drinking for approximately 10 years, he states he drinks 1/5 of vodka daily. Patient denies suicidal and homicidal ideation, he denies visual and auditory hallucinations. The patient says that all he wants is go to detox today. Patient agrees to be sent to [facility] again, he seems to be motivated to engage in a rehabilitation program. Review of Systems Constitutional: DENIES: Diaphoretic episodes, Fatigue, Fever, Weight gain, Weight loss, Chills, Dizziness, Change in appetite, Night Sweats Endocrine: DENIES: Heat/cold intolerance, Polydipsia, Polyuria, Polyphagia Eyes: DENIES: Blurred vision, Diplopia, Eye inflammation, Eye pain, Vision loss , Photosensitivity, Double Vision Ears, nose, mouth, throat: DENIES: Tinnitus, Hearing loss, Vertigo, Nasal discharge, Oral lesions, Throat pain, Hoarseness, Ear Pain, Running Nose, Epistaxis, Sinus Pain, Toothache, Odynophagia Respiratory: DENIES: Apneas, Cough, Snoring, Wheezing, Hemoptysis, Sputum production, Shortness of breath Cardiovascular: DENIES: Chest pain, Palpitations, Syncope, Dyspnea on Exertion , PND, Lower Extremity Edema, Orthopnea, Claudication Genitourinary: DENIES: Sexual dysfunction, Urinary frequency, Urinary incontinence, Urgency, Hematuria, Dysuria, Nocturia, Penile Discharge, Testicular Pain, Testicular Swelling Musculoskeletal: DENIES: Joint pain, Muscle aches, Stiffness, Joint Swelling, Back pain, Neck pain Integumentary: DENIES: Abnormal pigmentation, Nail changes, Pruritus, Rash Hematologic/lymphatic: DENIES: Bruising, Lymphadenopathy Immunologic/allergic: DENIES: Eczema, Urticaria Psychiatric: DENIES: Anxiety, Confusion, Mood changes, Depression, Hallucinations, Agitation, Suicidal Ideation, Homicidal Ideation, Delusions Past Family Social History Coded Allergies: No Known Allergies (Verified Allergy, Unknown, 06/08/17) Unable to Obtain Active Prescriptions or Reported Meds Current Medications Medications (Trade) Dose Ordered Sig/Carmen Route Start Time Stop Time Status Last Admin Potassium Chloride/Sodium Chloride 1,000 ml @ 100 mls/hr Q10H IV 07/04/17 01:18 07/05/17 08:51 (NS Flush) 2 ml UNSCH PRN IV FLUSH 07/04/17 01:30 (NS Flush) 2 ml BID IV FLUSH 07/04/17 09:00 07/05/17 08:52 (Pepcid) 20 mg Q12HR PO 07/04/17 09:00 07/05/17 08:52 (Zofran Inj) 4 mg Q6H PRN IV PUSH 07/04/17 01:30 (Albuterol Neb) 2.5 mg Q2HR NEB PRN INH 07/04/17 01:30 (Lovenox Inj) 40 mg Q24H SQ 07/04/17 06:00 07/05/17 05:38 Miscellaneous Information 1 Q361D XX 07/04/17 01:30 07/04/17 01:30 (Chlorhexidine 2% Cloth) 3 pack Taper DAILY@04 TOP 07/04/17 04:00 06/30/18 03:59 07/05/17 03:33 (Chlorhexidine 2% Cloth) 3 pack UNSCH PRN TOP 07/04/17 01:30 (Trinity-Colace) 1 tab BID PO 07/04/17 09:00 07/04/17 22:21 (Milk Of Magnesia Liq) 30 ml Q12H PRN PO 07/04/17 01:30 (Senokot) 17.2 mg Q12H PRN PO 07/04/17 01:30 (Dulcolax Supp) 10 mg DAILY PRN RECTAL 07/04/17 01:30 (Lactulose Liq) 30 ml DAILY PRN PO 07/04/17 01:30 Thiamine HCl 100 mg/Sodium Chloride 101 ml @ 101 mls/hr DAILY IV 07/04/17 09:00 07/05/17 08:52 (Theragran) 1 tab DAILY PO 07/04/17 09:00 07/05/17 08:52 (Folate) 1 mg DAILY PO 07/04/17 09:00 07/05/17 08:52 (Romazicon Inj) 0.2 mg Q1M PRN IV PUSH 07/04/17 04:45 (Ativan) 1 mg Q4H PRN PO 07/04/17 04:45 (Ativan Inj) 1 mg Q4H PRN IV PUSH 07/04/17 04:45 07/05/17 03:47 (Ativan) 2 mg Q2H PRN PO 07/04/17 04:45 07/05/17 09:22 (Ativan Inj) 2 mg Q2H PRN IV PUSH 07/04/17 04:45 (Ativan Inj) 2 mg Q1H PRN IV PUSH 07/04/17 04:45 (Ativan Inj) 2 mg Q15M PRN IV PUSH 07/04/17 04:45 Potassium Chloride 100 ml @ 50 mls/hr Q2H PRN IV 07/04/17 11:00 Potassium Chloride 100 ml @ 50 mls/hr Q2H PRN IV 07/04/17 11:00 (K-Lyte Cl Eff) 50 meq UNSCH PRN PO 07/04/17 11:00 Potassium Chloride 100 ml @ 25 mls/hr UNSCH PRN IV 07/04/17 11:00 Potassium Chloride 100 ml @ 50 mls/hr Q2H PRN IV 07/04/17 11:00 07/05/17 09:02 Magnesium Sulfate 4 gm/Sodium Chloride 100 ml @ 50 mls/hr UNSCH PRN IV 07/04/17 11:00 (Mag-Ox) 800 mg UNSCH PRN PO 07/04/17 11:00 Magnesium Sulfate 2 gm/Sodium Chloride 100 ml @ 50 mls/hr UNSCH PRN IV 07/04/17 11:00 (K-Phos) 2,000 mg Q4H PRN PO 07/04/17 11:00 Sodium Phosphate 30 mmol/Sodium Chloride 250 ml @ 42 mls/hr UNSCH PRN IV 07/04/17 11:00 (K-Phos) 2,000 mg UNSCH PRN PO/TUBE 07/04/17 11:00 Potassium Phosphate 30 mmol/ Sodium Chloride 260 ml @ 42 mls/hr UNSCH PRN IV 07/04/17 11:00 (Pepcid Inj) 20 mg Q12HR PRN IV PUSH 07/04/17 20:00 Family Psych History Denies family psychiatric history Social History Patient was born and raised in [place], he is homeless, single, unemployed, his highest level of education is high school Physical Exam Vital Signs Vital Signs Date Time Temp Pulse Resp B/P (MAP) Pulse Ox O2 Delivery O2 Flow Rate FiO2 07/05/17 10:00 114 07/05/17 08:00 98.6 27 117/84 (95) 96 07/04/17 02:32 Room Air I/O 07/05/17 07/05/17 07/06/17 08:00 16:00 00:00 Intake Total 480 ml Output Total 800 ml Balance -320 ml Lab Results Test 07/05/17 01:46 White Blood Count 6.1 TH/MM3 Red Blood Count 2.83 MIL/MM3 Hemoglobin 9.9 GM/DL Hematocrit 28.0 % Mean Corpuscular Volume 98.9 FL Mean Corpuscular Hemoglobin 34.9 PG Mean Corpuscular Hemoglobin Concent 35.3 % Red Cell Distribution Width 13.9 % Platelet Count 259 TH/MM3 Mean Platelet Volume 7.2 FL Neutrophils (%) (Auto) 56.7 % Lymphocytes (%) (Auto) 28.0 % Monocytes (%) (Auto) 11.7 % Eosinophils (%) (Auto) 2.5 % Basophils (%) (Auto) 1.1 % Neutrophils # (Auto) 3.4 TH/MM3 Lymphocytes # (Auto) 1.7 TH/MM3 Monocytes # (Auto) 0.7 TH/MM3 Eosinophils # (Auto) 0.1 TH/MM3 Basophils # (Auto) 0.1 TH/MM3 CBC Comment DIFF FINAL Differential Comment Blood Urea Nitrogen 24 MG/DL Creatinine 0.71 MG/DL Random Glucose 105 MG/DL Total Protein 6.2 GM/DL Albumin 2.4 GM/DL Calcium Level 9.0 MG/DL Magnesium Level 1.7 MG/DL Alkaline Phosphatase 114 U/L Aspartate Amino Transf (AST/SGOT) 114 U/L Alanine Aminotransferase (ALT/SGPT) 48 U/L Total Bilirubin 0.6 MG/DL Sodium Level 135 MEQ/L Potassium Level 3.3 MEQ/L Chloride Level 98 MEQ/L Carbon Dioxide Level 31.5 MEQ/L Anion Gap 6 MEQ/L Estimat Glomerular Filtration Rate 130 ML/MIN Lipase 1469 U/L Mental Status Examination Appearance: Appropriate Consciousness: Alert Orientation: x4 Motor Activity: Normal gait Speech: Unremarkable Language: Adequate Fund of Knowledge: Adequate Attention and Concentration: Adequate Memory: Unremarkable Mood: Appropriate Affect: Appropriate Thought Process & Associations: Intact Thought Content: Appropriate Hallucination Type: None Delusion Type: None Suicidal Ideation: No Suicidal Plan: No Suicidal Intention: No Homicidal Ideation: No Homicidal Plan: No Homicidal Intention: No Insight: Adequate Judgment: Adequate Assessment & Plan Problem List: (1) Alcohol abuse with alcohol-induced mood disorder ICD Codes: F10.14 - Alcohol abuse with alcohol-induced mood disorder Assessment & Plan: Patient reports sadness, anxiety, in the context of continues alcohol use. He denies anhedonia, he denies hopelessness, he denies helplessness, he denies suicidal and homicidal ideation, he denies visual and auditory hallucination at this moment. Reports to be motivated to quit alcohol start a process of rehabilitation program. I have consulted the administrator social welfare in the floor to try to provide the patient will referrals for rehabilitation services. He does not meet criteria for involuntary psychiatric admission. Continue [facility] protocol. Psychoeducation, motivation and brief supportive psychotherapy provided. Assessment & Plan Estimated LOS: Brandon Ly MD Jul 05, 2017 15:11
--- NOTE | 2017-07-05 18:25 | HHI.PR ---
Subjective Remarks Follow up for alcohol intoxication. Patient is sitting in the bed. Denies any fever, chills. No chest pain, SOB. Objective Vitals Vital Signs Date Time Temp Pulse Resp B/P (MAP) Pulse Ox O2 Delivery O2 Flow Rate FiO2 07/05/17 10:00 114 07/05/17 08:00 98.6 89 27 117/84 (95) 96 07/05/17 08:00 86 07/05/17 06:00 86 07/05/17 04:00 98.9 90 16 104/81 (89) 97 07/05/17 04:00 90 07/05/17 02:00 98 07/05/17 00:00 98.5 111 18 130/69 (89) 97 07/05/17 00:00 111 07/04/17 22:00 94 07/04/17 20:00 98.4 99 14 113/84 (94) 100 07/04/17 20:00 99 I/O 07/04/17 07/04/17 07/04/17 07/05/17 07/05/17 07/05/17 07:00 15:00 23:00 07:00 15:00 23:00 Intake Total 200 ml 201 ml 3298 ml 480 ml Output Total 1300 ml 800 ml Balance 200 ml 201 ml 1998 ml -320 ml Intake Oral 0 ml 480 ml 480 ml IV Total 200 ml 201 ml 2818 ml Output Urine Total 1300 ml 800 ml # Bowel Movements 0 2 Result Diagram: 07/05/17 0146 07/05/17 0146 Imaging Last Impressions Liver Ultrasound 07/04/17 0220 Signed Impressions: Service Date/Time: Tuesday, July 04, 2017 08:49 - CONCLUSION: 1. Echogenic liver probably fatty infiltration 2. The gallbladder is prominent without stones.Sludge is evident. Armando Wolfe MD FACR Head CT 07/03/17 0000 Signed Impressions: Service Date/Time: Monday, July 03, 2017 22:50 - CONCLUSION: Mild atrophy. No acute findings in the brain. Cassius Sanchez MD Objective Remarks GENERAL: Alert, NAD. SKIN: Warm and dry. HEAD: Normocephalic. EYES: No scleral icterus. No injection or drainage. NECK: Supple, trachea midline. No JVD or lymphadenopathy. CARDIOVASCULAR: Regular rate and rhythm without murmurs, gallops, or rubs. RESPIRATORY: Breath sounds equal bilaterally. No accessory muscle use. GASTROINTESTINAL: Abdomen soft, non-tender, nondistended. MUSCULOSKELETAL: No cyanosis, or edema. BACK: Nontender without obvious deformity. No CVA tenderness. Procedures None. A/P Problem List: (1) Alcohol abuse with alcohol-induced mood disorder ICD Code: F10.14 - Alcohol abuse with alcohol-induced mood disorder (2) Hyponatremia ICD Code: E87.1 - Hypo-osmolality and hyponatremia Status: Acute (3) Hypokalemia ICD Code: E87.6 - Hypokalemia Status: Acute Assessment and Plan Mr. Purvis is a 31 year old male who is unfortunately homeless, with a history of alcohol dependence, depression, anxiety who was admitted to the hospital after he was found asleep on the ground outside the hospital. On evaluation, his Na 123, K 2.5, metabolic alkalosis with bicarb 32.6. CT brain negative for any acute findings. Alcohol level was 3. - Alcohol abuse - Hypernatremia - Hypokalemia - No sign of withdrawal. - Continue CIWA protocol. - Na corrected from 125 --> 135. K corrected from 2.7 to 3.3. Currently on replacement protocol. -Tolerating diet well. - Will check electrolytes in the AM. - Mg level is still low 1.7. Will replace with IV Mg sulfate. - After 3rd dose of IV thiamine, we can switch to PO thiamine. - Continue PO Folic acid. Continue Thiamine and Folic acid for one month. Full code. Lovenox. Discharge plan: Potential discharge on 07/06/2017 IF patient remains hemodynamically stable. Freda Crenshaw DO Jul 05, 2017 18:25
[2017-07-05] MEDS: MAGNESIUM SULFATE 1 GM PREMIX 100 ML IV SCH ×2 (19:21→20:43)
[2017-07-06] VITALS (12 sets, daily range): BP systolic 110–133; BP diastolic 75–96; PULSE 73–89; RESP 17–42; TEMP 97.8–98.5; O2SAT 99–100
[2017-07-06] MEDS: LORazepam 2 MG TAB PO PRN ×8 (00:44→21:47)
[2017-07-06] MEDS: NS + KCL 20 MEQ INJ 1,000 ML IV SCH ×3 (03:29→20:55)
[2017-07-06] MEDS: CHLORHEXIDINE GLUCONATE 2 % 1 PACK (2 CLOTHS) TOP SCH (04:00)
[2017-07-06] MEDS: ENOXAPARIN SODIUM 40 MG/0.4 ML SYRINGE SQ SCH (05:36)
[2017-07-06] MEDS: SODIUM CHLORIDE 0.9% FLUSH 10 ML FLUSH IV FLUSH SCH ×2 (07:55→20:55)
[2017-07-06] MEDS: THIAMINE INJ 100 MG in SODIUM CHLORIDE 0.9% INJ 100 ML IV SCH (07:55)
[2017-07-06] MEDS: MULTIVITAMIN TAB PO SCH (07:56)
[2017-07-06] MEDS: FAMOTIDINE 20 MG TAB PO SCH ×2 (07:56→20:54)
[2017-07-06] MEDS: DOCUSATE SODIUM 50 MG/SENNA 8.6 MG TAB PO SCH ×2 (07:56→20:54)
[2017-07-06] MEDS: FOLIC ACID 1 MG TAB PO SCH (07:56)
--- NOTE | 2017-07-06 09:56 | HHI.PR ---
Subjective Remarks Follow-up electrolyte abnormalities, alcohol withdrawal. The patient continues to have very vivid dreams. Otherwise feels that he is getting better. Objective Vitals Vital Signs Date Time Temp Pulse Resp B/P (MAP) Pulse Ox O2 Delivery O2 Flow Rate FiO2 07/06/17 06:00 82 07/06/17 04:00 85 07/06/17 04:00 98.4 85 42 126/88 (101) 07/06/17 02:00 78 07/06/17 00:00 77 07/06/17 00:00 98.5 77 34 115/86 (96) 99 07/05/17 22:00 84 07/05/17 20:00 86 07/05/17 20:00 98.6 86 22 102/71 (81) 98 07/05/17 18:00 89 07/05/17 16:00 98.5 89 21 125/88 (100) 98 07/05/17 16:00 89 07/05/17 14:00 91 07/05/17 12:00 85 07/05/17 12:00 97.9 85 19 116/84 (95) 98 07/05/17 10:00 114 I/O 07/05/17 07/05/17 07/05/17 07/06/17 07/06/17 07/06/17 07:00 15:00 23:00 07:00 15:00 23:00 Intake Total 480 ml 2120 ml 1720 ml Output Total 800 ml 780 ml 500 ml Balance -320 ml 1340 ml 1220 ml Intake Oral 480 ml 1920 ml 720 ml IV Total 200 ml 1000 ml Output Urine Total 800 ml 780 ml 500 ml # Voids 5 2 # Bowel Movements 2 3 2 Result Diagram: 07/05/17 0146 07/05/17 1716 Imaging Last Impressions Liver Ultrasound 07/04/17 0220 Signed Impressions: Service Date/Time: Tuesday, July 04, 2017 08:49 - CONCLUSION: 1. Echogenic liver probably fatty infiltration 2. The gallbladder is prominent without stones.Sludge is evident. Armando Wolfe MD FACR Head CT 07/03/17 0000 Signed Impressions: Service Date/Time: Monday, July 03, 2017 22:50 - CONCLUSION: Mild atrophy. No acute findings in the brain. Cassius Sanchez MD Objective Remarks General: No acute distress. Heart: Regular rate and rhythm. No murmur. Lungs: Clear to auscultation bilaterally. No wheezes, rales, or rhonchi. Breathing is nonlabored. Abdomen: Soft, mild tenderness in the midepigastric region, nondistended. Extremities: No lower extremity edema. Psych: Alert and oriented. Procedures None. Urinary Catheter: No Vascular Central Line Catheter: No A/P Problem List: (1) Alcohol abuse with alcohol-induced mood disorder ICD Code: F10.14 - Alcohol abuse with alcohol-induced mood disorder (2) Hyponatremia ICD Code: E87.1 - Hypo-osmolality and hyponatremia Status: Acute (3) Hypokalemia ICD Code: E87.6 - Hypokalemia Status: Acute Assessment and Plan 1. Alcohol abuse, withdrawal: Patient having vivid dreams and confusion overnight. Continue CIWA protocol. Appreciate psychiatry recommendations. 2. Hyponatremia: Improving. Labs are pending this morning. Continue IV fluids. 3. Hypokalemia: Improving. Labs are pending this morning. 4. Tobacco abuse: Nicotine patch. 5. DVT prophylaxis: Lovenox. Discharge Planning Transfer to med/surg floor with telemetry when a bed is available. Possible discharge next 1-2 days. Irwin Smart MD Jul 06, 2017 09:56
[2017-07-06 10:19] LABS: AUTOMATED NEUTROPHIL # 4.6 TH/MM3 (1.8-7.7); BASOPHIL # 0.1 TH/MM3 (0-0.2); BASOPHIL % 1.4 % (0.0-2.0); EOSINOPHIL # 0.3 TH/MM3 (0-0.4); EOSINOPHIL % 3.4 % (0.0-4.0); HEMATOCRIT 25.6 % (39.0-51.0); HEMOGLOBIN 8.9 GM/DL (13.0-17.0); LYMPH % 20.7 % (9.0-44.0); LYMPHOCYTE # 1.5 TH/MM3 (1.0-4.8); MEAN CELL VOLUME 100.4 FL (80.0-100.0); MEAN CORPUSCULAR HEMOGLOBIN 34.8 PG (27.0-34.0); MEAN CORPUSCULAR HGB CONC 34.7 % (32.0-36.0); MONO % 11.6 % (0.0-8.0); MONOCYTE # 0.9 TH/MM3 (0-0.9); NEUT % 62.9 % (16.0-70.0); PLATELET COUNT 253 TH/MM3 (150-450); RED BLOOD COUNT 2.55 MIL/MM3 (4.50-5.90); RED CELL DISTRIBUTION WIDTH 13.7 % (11.6-17.2); WHITE BLOOD COUNT 7.4 TH/MM3 (4.0-11.0)
[2017-07-06] MEDS: NICOTINE 14 MG/24 HR PATCH T-DERMAL SCH (10:29)
[2017-07-06 10:33] LABS: BICARBONATE 26.3 MEQ/L (21.0-32.0); CALCIUM 8.3 MG/DL (8.5-10.1); CREATININE 0.52 MG/DL (0.60-1.30)
[2017-07-06 10:35] LABS: MAGNESIUM 1.4 MG/DL (1.5-2.5)
[2017-07-06] MEDS: MAGNESIUM SULFATE 1 GM PREMIX 100 ML IV SCH ×2 (16:30→16:57)
[2017-07-06] MEDS: LORazepam 2 MG/ML VIAL IV PUSH PRN (18:55)
[2017-07-06] MEDS: ONDANSETRON HCL 4 MG/2 ML VIAL IV PUSH PRN (20:58)
[2017-07-07] VITALS (7 sets, daily range): BP systolic 137–157; BP diastolic 89–99; PULSE 56–78; RESP 16–20; TEMP 97.6–98.6; O2SAT 99–100
[2017-07-07] MEDS: LORazepam 2 MG TAB PO PRN ×2 (03:36→21:54)
[2017-07-07] MEDS: CHLORHEXIDINE GLUCONATE 2 % 1 PACK (2 CLOTHS) TOP SCH (04:00)
[2017-07-07] MEDS: ENOXAPARIN SODIUM 40 MG/0.4 ML SYRINGE SQ SCH (05:46)
[2017-07-07] MEDS: LORazepam 2 MG/ML VIAL IV PUSH PRN ×4 (05:46→17:07)
[2017-07-07] MEDS: NS + KCL 20 MEQ INJ 1,000 ML IV SCH ×2 (07:22→19:00)
[2017-07-07] MEDS: NICOTINE 14 MG/24 HR PATCH T-DERMAL SCH (09:00)
[2017-07-07] MEDS: DOCUSATE SODIUM 50 MG/SENNA 8.6 MG TAB PO SCH ×2 (09:00→21:55)
[2017-07-07 09:34] LABS: BICARBONATE 18.1 MEQ/L (21.0-32.0); CALCIUM 8.3 MG/DL (8.5-10.1); CREATININE 0.56 MG/DL (0.60-1.30)
[2017-07-07 09:36] LABS: AUTOMATED NEUTROPHIL # 3.9 TH/MM3 (1.8-7.7); BASOPHIL # 0.1 TH/MM3 (0-0.2); BASOPHIL % 1.4 % (0.0-2.0); EOSINOPHIL # 0.3 TH/MM3 (0-0.4); EOSINOPHIL % 4.3 % (0.0-4.0); HEMATOCRIT 27.3 % (39.0-51.0); HEMOGLOBIN 9.2 GM/DL (13.0-17.0); LYMPH % 27.1 % (9.0-44.0); LYMPHOCYTE # 1.9 TH/MM3 (1.0-4.8); MEAN CELL VOLUME 103.3 FL (80.0-100.0); MEAN CORPUSCULAR HEMOGLOBIN 34.7 PG (27.0-34.0); MEAN CORPUSCULAR HGB CONC 33.6 % (32.0-36.0); MONO % 12.4 % (0.0-8.0); MONOCYTE # 0.9 TH/MM3 (0-0.9); NEUT % 54.8 % (16.0-70.0); PLATELET COUNT 244 TH/MM3 (150-450); RED BLOOD COUNT 2.64 MIL/MM3 (4.50-5.90); RED CELL DISTRIBUTION WIDTH 14.1 % (11.6-17.2); WHITE BLOOD COUNT 7.2 TH/MM3 (4.0-11.0)
[2017-07-07] MEDS: THIAMINE HCL 100 MG TAB PO SCH (09:39)
[2017-07-07] MEDS: FAMOTIDINE 20 MG TAB PO SCH ×2 (09:39→21:57)
[2017-07-07] MEDS: FOLIC ACID 1 MG TAB PO SCH (09:39)
[2017-07-07] MEDS: MULTIVITAMIN TAB PO SCH (09:39)
[2017-07-07] MEDS: SODIUM CHLORIDE 0.9% FLUSH 10 ML FLUSH IV FLUSH SCH ×2 (09:44→21:00)
--- NOTE | 2017-07-07 14:29 | HHI.PR ---
Subjective Remarks Follow up alcohol withdrawal. Patient still having tremors and reports vivid dreams. Occasionally having some hallucinations, but states that this is improving. Objective Vitals Vital Signs Date Time Temp Pulse Resp B/P (MAP) Pulse Ox O2 Delivery O2 Flow Rate FiO2 07/07/17 12:00 98.2 72 18 144/99 (114) 100 07/07/17 08:00 98.6 68 18 142/90 (107) 100 07/07/17 03:52 57 07/07/17 00:00 97.6 78 20 137/89 (105) 99 07/06/17 23:57 74 07/06/17 20:00 97.8 79 22 124/75 (91) 100 07/06/17 17:51 98.4 73 18 129/92 (104) 100 07/06/17 16:00 98.0 89 30 133/96 (108) 100 07/06/17 16:00 89 I/O 07/06/17 07/06/17 07/06/17 07/07/17 07/07/17 07/07/17 07:00 15:00 23:00 07:00 15:00 23:00 Intake Total 1720 ml 101 ml 600 ml 843 ml 157 ml Output Total 500 ml 850 ml Balance 1220 ml 101 ml -250 ml 843 ml 157 ml Intake Oral 720 ml 600 ml IV Total 1000 ml 101 ml 843 ml 157 ml Output Urine Total 500 ml 850 ml # Voids 2 # Bowel Movements 2 4 Result Diagram: 07/07/17 0630 07/07/17 0630 Imaging Last Impressions Liver Ultrasound 07/04/17 0220 Signed Impressions: Service Date/Time: Tuesday, July 04, 2017 08:49 - CONCLUSION: 1. Echogenic liver probably fatty infiltration 2. The gallbladder is prominent without stones.Sludge is evident. Armando Wolfe MD FACR Head CT 07/03/17 0000 Signed Impressions: Service Date/Time: Monday, July 03, 2017 22:50 - CONCLUSION: Mild atrophy. No acute findings in the brain. Cassius Sanchez MD Objective Remarks General: No acute distress. Tremulous. Heart: Regular rate and rhythm. No murmur. Lungs: Clear to auscultation bilaterally. No wheezes, rales, or rhonchi. Breathing is nonlabored. Abdomen: Soft, mild tenderness in the midepigastric region, nondistended. Extremities: No lower extremity edema. Psych: Alert and oriented. Procedures None. Urinary Catheter: No Vascular Central Line Catheter: No A/P Problem List: (1) Alcohol abuse with alcohol-induced mood disorder ICD Code: F10.14 - Alcohol abuse with alcohol-induced mood disorder (2) Hyponatremia ICD Code: E87.1 - Hypo-osmolality and hyponatremia Status: Acute (3) Hypokalemia ICD Code: E87.6 - Hypokalemia Status: Acute (4) Pancreatitis ICD Code: K85.90 - Acute pancreatitis without necrosis or infection, unspecified Assessment and Plan 1. Alcohol abuse, withdrawal: Patient having vivid dreams and confusion overnight. Continue CIWA protocol. Appreciate psychiatry recommendations. Withdrawal precautions. 2. Hyponatremia: Improved. Continue IV fluids. 3. Hypokalemia: Improved. 4. Tobacco abuse: Nicotine patch. 5. Pancreatitis: Patient reporting midepigastric abdominal pain. His lipase is increasing. Increase IV fluids. Change to clear liquid diet. 6. DVT prophylaxis: Lovenox. Discharge Planning Pending further clinical improvement. Irwin Smart MD Jul 07, 2017 14:29
[2017-07-08] VITALS (7 sets, daily range): BP systolic 117–151; BP diastolic 74–108; PULSE 59–83; RESP 16–20; TEMP 97.8–99.2; O2SAT 97–100
[2017-07-08] MEDS: NS + KCL 20 MEQ INJ 1,000 ML IV SCH ×3 (02:25→18:36)
[2017-07-08] MEDS: LORazepam 1 MG TAB PO PRN (02:29)
[2017-07-08] MEDS: ACETAMINOPHEN 325 MG TAB PO PRN (02:32)
[2017-07-08] MEDS: CHLORHEXIDINE GLUCONATE 2 % 1 PACK (2 CLOTHS) TOP SCH (04:00)
[2017-07-08 06:14] LABS: BICARBONATE 24.6 MEQ/L (21.0-32.0); CALCIUM 8.1 MG/DL (8.5-10.1); CREATININE 0.58 MG/DL (0.60-1.30); MAGNESIUM 1.2 MG/DL (1.5-2.5)
[2017-07-08] MEDS: ENOXAPARIN SODIUM 40 MG/0.4 ML SYRINGE SQ SCH (06:20)
[2017-07-08] MEDS: LORazepam 2 MG TAB PO PRN ×5 (06:20→22:35)
[2017-07-08] MEDS: NICOTINE 14 MG/24 HR PATCH T-DERMAL SCH (09:00)
[2017-07-08] MEDS: REMOVE OLD PATCH T-DERMAL SCH (09:00)
[2017-07-08] MEDS: MULTIVITAMIN TAB PO SCH (09:38)
[2017-07-08] MEDS: DOCUSATE SODIUM 50 MG/SENNA 8.6 MG TAB PO SCH ×2 (09:38→20:54)
[2017-07-08] MEDS: FAMOTIDINE 20 MG TAB PO SCH ×2 (09:38→20:54)
[2017-07-08] MEDS: FOLIC ACID 1 MG TAB PO SCH (09:38)
[2017-07-08] MEDS: THIAMINE HCL 100 MG TAB PO SCH (09:38)
[2017-07-08] MEDS: MAGNESIUM SULFATE 1 GM PREMIX 100 ML IV SCH ×2 (09:39→10:40)
[2017-07-08] MEDS: SODIUM CHLORIDE 0.9% FLUSH 10 ML FLUSH IV FLUSH SCH ×2 (09:45→20:54)
--- NOTE | 2017-07-08 10:57 | HHI.PR ---
Subjective Remarks Follow-up alcohol withdrawal, pancreatitis. The patient states that he is feeling better today. Still shaky and weak. Abdominal pain is improving. Now with crampy discomfort in the lower abdomen. He states that he feels hungry. Objective Vitals Vital Signs Date Time Temp Pulse Resp B/P (MAP) Pulse Ox O2 Delivery O2 Flow Rate FiO2 07/08/17 08:00 98.0 65 19 138/76 (96) 99 07/08/17 04:17 18 07/08/17 04:16 59 07/08/17 04:00 98.2 74 18 125/74 (91) 97 07/08/17 04:00 Room Air 07/08/17 00:00 97.8 66 18 117/80 (92) 97 07/08/17 00:00 76 07/08/17 00:00 Room Air 07/07/17 21:00 Room Air 07/07/17 20:34 98.5 56 16 157/93 (114) 100 07/07/17 20:06 67 07/07/17 16:00 98.4 64 20 138/98 (111) 100 07/07/17 12:00 98.2 72 18 144/99 (114) 100 I/O 07/07/17 07/07/17 07/07/17 07/08/17 07/08/17 07/08/17 07:00 15:00 23:00 07:00 15:00 23:00 Intake Total 843 ml 157 ml 720 ml 1000 ml Output Total 200 ml 1300 ml Balance 843 ml 157 ml 520 ml -300 ml Intake Oral 720 ml IV Total 843 ml 157 ml 1000 ml Output Urine Total 200 ml 1300 ml # Voids 1 # Bowel Movements 1 Result Diagram: 07/07/17 0630 07/08/17 0519 Imaging Last Impressions Liver Ultrasound 07/04/17 0220 Signed Impressions: Service Date/Time: Tuesday, July 04, 2017 08:49 - CONCLUSION: 1. Echogenic liver probably fatty infiltration 2. The gallbladder is prominent without stones.Sludge is evident. Armando Wolfe MD FACR Head CT 07/03/17 0000 Signed Impressions: Service Date/Time: Monday, July 03, 2017 22:50 - CONCLUSION: Mild atrophy. No acute findings in the brain. Cassius Sanchez MD Objective Remarks General: No acute distress. Tremulous. Heart: Regular rate and rhythm. No murmur. Lungs: Clear to auscultation bilaterally. No wheezes, rales, or rhonchi. Breathing is nonlabored. Abdomen: Soft, mild tenderness in the midepigastric region, nondistended. Extremities: No lower extremity edema. Psych: Alert and oriented. Procedures None. Urinary Catheter: No Vascular Central Line Catheter: No A/P Problem List: (1) Alcohol abuse with alcohol-induced mood disorder ICD Code: F10.14 - Alcohol abuse with alcohol-induced mood disorder (2) Hyponatremia ICD Code: E87.1 - Hypo-osmolality and hyponatremia Status: Acute (3) Hypokalemia ICD Code: E87.6 - Hypokalemia Status: Acute (4) Pancreatitis ICD Code: K85.90 - Acute pancreatitis without necrosis or infection, unspecified Assessment and Plan 1. Alcohol abuse, withdrawal: Improving. Continue CIMO protocol. Appreciate psychiatry recommendations. Withdrawal/seizure precautions. 2. Hyponatremia: Improved. Continue IV fluids. 3. Hypokalemia: Improved. 4. Tobacco abuse: Nicotine patch. 5. Pancreatitis: His lipase is improving. Continue IV fluids. Advance to heart healthy diet. 6. DVT prophylaxis: Lovenox. Discharge Planning Pending further clinical improvement. Irwin Smart MD Jul 08, 2017 10:57
[2017-07-09] VITALS (8 sets, daily range): BP systolic 124–148; BP diastolic 82–105; PULSE 57–88; RESP 17–22; TEMP 97.6–98.4; O2SAT 97–100
[2017-07-09] MEDS: NS + KCL 20 MEQ INJ 1,000 ML IV SCH ×4 (01:47→23:01)
[2017-07-09] MEDS: CHLORHEXIDINE GLUCONATE 2 % 1 PACK (2 CLOTHS) TOP SCH (04:00)
[2017-07-09] MEDS: LORazepam 2 MG TAB PO PRN ×2 (04:27→09:07)
[2017-07-09] MEDS: ENOXAPARIN SODIUM 40 MG/0.4 ML SYRINGE SQ SCH (04:31)
[2017-07-09 07:56] LABS: BASOPHIL # 0.1 TH/MM3 (0-0.2); BASOPHIL % 1.6 % (0.0-2.0); EOSINOPHIL # 0.2 TH/MM3 (0-0.4); EOSINOPHIL % 4.5 % (0.0-4.0); HEMATOCRIT 28.9 % (39.0-51.0); LYMPH % 25.7 % (9.0-44.0); LYMPHOCYTE # 1.4 TH/MM3 (1.0-4.8); MEAN CELL VOLUME 102.7 FL (80.0-100.0); MEAN CORPUSCULAR HEMOGLOBIN 35.5 PG (27.0-34.0); MEAN CORPUSCULAR HGB CONC 34.6 % (32.0-36.0); MEAN PLATELET VOLUME 7.8 FL (7.0-11.0); MONO % 13.2 % (0.0-8.0); MONOCYTE # 0.7 TH/MM3 (0-0.9); PLATELET COUNT 315 TH/MM3 (150-450); RED BLOOD COUNT 2.81 MIL/MM3 (4.50-5.90); RED CELL DISTRIBUTION WIDTH 15.3 % (11.6-17.2); WHITE BLOOD COUNT 5.4 TH/MM3 (4.0-11.0)
[2017-07-09 07:59] LABS: ALBUMIN 2.4 GM/DL (3.4-5.0); AST (GOT) 147 U/L (15-37); BICARBONATE 24.7 MEQ/L (21.0-32.0); BLOOD UREA NITROGEN 4 MG/DL (7-18); CALCIUM 8.6 MG/DL (8.5-10.1); CHLORIDE 109 MEQ/L (98-107); CREATININE 0.55 MG/DL (0.60-1.30); GLOMERULAR FILTRATION RATE 175 ML/MIN (>89); GLUCOSE,RANDOM 77 MG/DL (74-106); MAGNESIUM 1.5 MG/DL (1.5-2.5); SODIUM (NA) 142 MEQ/L (136-145)
[2017-07-09 08:03] LABS: ALKALINE PHOSPHATASE 91 U/L (45-117); ALT (GPT) 115 U/L (12-78); TOTAL BILIRUBIN ADULT 0.5 MG/DL (0.2-1.0); TOTAL PROTEIN 5.9 GM/DL (6.4-8.2)
[2017-07-09] MEDS: SODIUM CHLORIDE 0.9% FLUSH 10 ML FLUSH IV FLUSH SCH ×2 (09:00→22:02)
[2017-07-09] MEDS: REMOVE OLD PATCH T-DERMAL SCH (09:00)
[2017-07-09] MEDS: THIAMINE HCL 100 MG TAB PO SCH (09:06)
[2017-07-09] MEDS: DOCUSATE SODIUM 50 MG/SENNA 8.6 MG TAB PO SCH ×2 (09:06→21:00)
[2017-07-09] MEDS: MULTIVITAMIN TAB PO SCH (09:06)
[2017-07-09] MEDS: FOLIC ACID 1 MG TAB PO SCH (09:06)
[2017-07-09] MEDS: FAMOTIDINE 20 MG TAB PO SCH ×2 (09:07→22:02)
[2017-07-09] MEDS: NICOTINE 14 MG/24 HR PATCH T-DERMAL SCH (09:07)
[2017-07-09] MEDS: ACETAMINOPHEN 325 MG TAB PO PRN (09:11)
--- NOTE | 2017-07-09 11:05 | HHI.PR ---
Subjective Remarks Follow up alcohol withdrawal, electrolyte abnormalities. Patient states that he had a panic attack last night. He woke up confused and anxious. States that he feels better this morning. Objective Vitals Vital Signs Date Time Temp Pulse Resp B/P (MAP) Pulse Ox O2 Delivery O2 Flow Rate FiO2 07/09/17 10:11 18 07/09/17 08:00 97.7 57 18 148/105 (119) 100 07/09/17 08:00 Room Air 07/09/17 04:31 Room Air 07/09/17 04:31 98.1 71 22 137/91 (106) 97 07/09/17 04:00 85 07/09/17 00:00 Room Air 07/09/17 00:00 98.1 73 18 134/92 (106) 98 07/09/17 00:00 71 07/08/17 20:00 83 07/08/17 20:00 99.2 75 16 137/95 (109) 100 07/08/17 16:00 98.3 78 18 143/108 (120) 100 07/08/17 12:00 97.8 63 20 151/99 (116) 100 I/O 07/08/17 07/08/17 07/08/17 07/09/17 07/09/17 07/09/17 07:00 15:00 23:00 07:00 15:00 23:00 Intake Total 1000 ml 720 ml 3455 ml Output Total 1300 ml 1502 ml 2250 ml Balance -300 ml -782 ml 1205 ml Intake Oral 720 ml 1810 ml IV Total 1000 ml 1645 ml Output Urine Total 1300 ml 1500 ml 2250 ml Stool Total 2 ml # Voids 2 # Bowel Movements 1 Result Diagram: 07/09/17 0621 07/09/17 0621 Imaging Last Impressions Liver Ultrasound 07/04/17 0220 Signed Impressions: Service Date/Time: Tuesday, July 04, 2017 08:49 - CONCLUSION: 1. Echogenic liver probably fatty infiltration 2. The gallbladder is prominent without stones.Sludge is evident. Armando Wolfe MD FACR Head CT 07/03/17 0000 Signed Impressions: Service Date/Time: Monday, July 03, 2017 22:50 - CONCLUSION: Mild atrophy. No acute findings in the brain. Cassius Sanchez MD Objective Remarks General: No acute distress. Mildly tremulous. Heart: Regular rate and rhythm. No murmur. Lungs: Clear to auscultation bilaterally. No wheezes, rales, or rhonchi. Breathing is nonlabored. Abdomen: Soft, nontender, nondistended. Extremities: No lower extremity edema. Psych: Alert and oriented. Procedures None. Urinary Catheter: No Vascular Central Line Catheter: No A/P Problem List: (1) Alcohol abuse with alcohol-induced mood disorder ICD Code: F10.14 - Alcohol abuse with alcohol-induced mood disorder (2) Hyponatremia ICD Code: E87.1 - Hypo-osmolality and hyponatremia Status: Acute (3) Hypokalemia ICD Code: E87.6 - Hypokalemia Status: Acute (4) Pancreatitis ICD Code: K85.90 - Acute pancreatitis without necrosis or infection, unspecified Assessment and Plan 1. Alcohol abuse, withdrawal: Improving. Still having confusion/anxiety episodes at night. Continue CIWA protocol. Appreciate psychiatry recommendations. Withdrawal/seizure precautions. 2. Hyponatremia: Resolved. 3. Hypokalemia: Resolved. 4. Tobacco abuse: Nicotine patch. 5. Pancreatitis: His lipase is improving. Continue IV fluids. Continue heart healthy diet. 6. DVT prophylaxis: Lovenox. Discharge Planning Pending further clinical improvement. Irwin Smart MD Jul 09, 2017 11:05
[2017-07-09] MEDS: LORazepam 1 MG TAB PO PRN (14:32)
[2017-07-09] MEDS: LORazepam 2 MG/ML VIAL IV PUSH PRN (22:02)
[2017-07-10] VITALS (7 sets, daily range): BP systolic 109–135; BP diastolic 63–91; PULSE 56–78; RESP 16–20; TEMP 97.8–98.3; O2SAT 97–100
[2017-07-10] MEDS: CHLORHEXIDINE GLUCONATE 2 % 1 PACK (2 CLOTHS) TOP SCH (04:00)
[2017-07-10] MEDS: ONDANSETRON HCL 4 MG/2 ML VIAL IV PUSH PRN (04:48)
[2017-07-10] MEDS: ACETAMINOPHEN 325 MG TAB PO PRN ×3 (04:48→16:59)
[2017-07-10] MEDS: LORazepam 2 MG/ML VIAL IV PUSH PRN ×4 (04:49→17:00)
[2017-07-10] MEDS: NS + KCL 20 MEQ INJ 1,000 ML IV SCH ×3 (05:41→23:24)
[2017-07-10] MEDS: ENOXAPARIN SODIUM 40 MG/0.4 ML SYRINGE SQ SCH (06:00)
[2017-07-10 08:36] LABS: ALBUMIN 2.5 GM/DL (3.4-5.0); ALT (GPT) 113 U/L (12-78); AST (GOT) 136 U/L (15-37); BICARBONATE 26.6 MEQ/L (21.0-32.0); BLOOD UREA NITROGEN 4 MG/DL (7-18); CALCIUM 8.6 MG/DL (8.5-10.1); CHLORIDE 108 MEQ/L (98-107); CREATININE 0.56 MG/DL (0.60-1.30); GLOMERULAR FILTRATION RATE 171 ML/MIN (>89); GLUCOSE,RANDOM 78 MG/DL (74-106); MAGNESIUM 1.6 MG/DL (1.5-2.5); SODIUM (NA) 142 MEQ/L (136-145)
[2017-07-10 08:37] LABS: ALKALINE PHOSPHATASE 86 U/L (45-117); TOTAL BILIRUBIN ADULT 0.5 MG/DL (0.2-1.0)
[2017-07-10] MEDS: SODIUM CHLORIDE 0.9% FLUSH 10 ML FLUSH IV FLUSH SCH ×2 (09:00→21:00)
[2017-07-10] MEDS: DOCUSATE SODIUM 50 MG/SENNA 8.6 MG TAB PO SCH ×2 (09:13→21:00)
[2017-07-10] MEDS: FOLIC ACID 1 MG TAB PO SCH (09:14)
[2017-07-10] MEDS: MULTIVITAMIN TAB PO SCH (09:14)
[2017-07-10] MEDS: FAMOTIDINE 20 MG TAB PO SCH ×2 (09:14→21:00)
[2017-07-10] MEDS: THIAMINE HCL 100 MG TAB PO SCH (09:14)
[2017-07-10] MEDS: REMOVE OLD PATCH T-DERMAL SCH (09:15)
[2017-07-10] MEDS: NICOTINE 14 MG/24 HR PATCH T-DERMAL SCH (09:15)
--- NOTE | 2017-07-10 10:14 | HHI.PR ---
Subjective Remarks Follow-up alcohol withdrawal. Patient still having high CIWA scores. States that he had another rough night, but is feeling a little better this morning after receiving Librium and Ativan. Objective Vitals Vital Signs Date Time Temp Pulse Resp B/P (MAP) Pulse Ox O2 Delivery O2 Flow Rate FiO2 07/10/17 04:00 97.8 71 16 132/82 (99) 100 07/10/17 04:00 Room Air 07/10/17 04:00 78 07/10/17 00:00 Room Air 07/10/17 00:00 58 07/09/17 23:56 98.0 61 18 126/82 (97) 100 07/09/17 22:00 Room Air 07/09/17 20:00 98.3 82 18 145/96 (112) 100 07/09/17 20:00 84 07/09/17 16:11 98.4 65 17 124/89 (101) 100 07/09/17 11:04 97.6 88 18 139/96 (110) 100 I/O 07/09/17 07/09/17 07/09/17 07/10/17 07/10/17 07/10/17 07:00 15:00 23:00 07:00 15:00 23:00 Intake Total 3455 ml 1960 ml 1900 ml Output Total 2250 ml 1175 ml 2000 ml Balance 1205 ml 785 ml -100 ml Intake Oral 1810 ml 960 ml 900 ml IV Total 1645 ml 1000 ml 1000 ml Output Urine Total 2250 ml 1175 ml 2000 ml # Bowel Movements 1 0 Result Diagram: 07/09/17 0621 07/10/17 0715 Imaging Last Impressions Liver Ultrasound 07/04/17 0220 Signed Impressions: Service Date/Time: Tuesday, July 04, 2017 08:49 - CONCLUSION: 1. Echogenic liver probably fatty infiltration 2. The gallbladder is prominent without stones.Sludge is evident. Armando Wolfe MD FACR Head CT 07/03/17 0000 Signed Impressions: Service Date/Time: Monday, July 03, 2017 22:50 - CONCLUSION: Mild atrophy. No acute findings in the brain. Cassius Sanchez MD Objective Remarks General: No acute distress. Mildly tremulous. Heart: Regular rate and rhythm. No murmur. Lungs: Clear to auscultation bilaterally. No wheezes, rales, or rhonchi. Breathing is nonlabored. Abdomen: Soft, nontender, nondistended. Extremities: No lower extremity edema. Psych: Alert and oriented. Procedures None. Urinary Catheter: No Vascular Central Line Catheter: No A/P Problem List: (1) Alcohol abuse with alcohol-induced mood disorder ICD Code: F10.14 - Alcohol abuse with alcohol-induced mood disorder (2) Hyponatremia ICD Code: E87.1 - Hypo-osmolality and hyponatremia Status: Acute (3) Hypokalemia ICD Code: E87.6 - Hypokalemia Status: Acute (4) Pancreatitis ICD Code: K85.90 - Acute pancreatitis without necrosis or infection, unspecified Assessment and Plan 1. Alcohol abuse, withdrawal: Improving. Still having confusion/anxiety episodes at night. Continue CIWA protocol. Appreciate psychiatry recommendations. Withdrawal/seizure precautions. Add Librium. 2. Hyponatremia: Resolved. 3. Hypokalemia: Resolved. 4. Tobacco abuse: Nicotine patch. 5. Pancreatitis: Clinically improved. Lipase trending down. Continue IV fluids. Continue heart healthy diet. 6. DVT prophylaxis: Lovenox. Discharge Planning Pending further clinical improvement. Irwin Smart MD Jul 10, 2017 10:14
[2017-07-10] MEDS: LORazepam 2 MG TAB PO PRN ×2 (21:00→23:03)
[2017-07-11] VITALS (8 sets, daily range): BP systolic 98–145; BP diastolic 72–103; PULSE 55–103; RESP 16–20; TEMP 97.6–98.3; O2SAT 95–100
[2017-07-11] MEDS: LORazepam 2 MG TAB PO PRN ×5 (01:22→22:05)
[2017-07-11] MEDS: CHLORHEXIDINE GLUCONATE 2 % 1 PACK (2 CLOTHS) TOP SCH (03:14)
[2017-07-11] MEDS: ENOXAPARIN SODIUM 40 MG/0.4 ML SYRINGE SQ SCH (06:19)
[2017-07-11] MEDS: NICOTINE 14 MG/24 HR PATCH T-DERMAL SCH (08:29)
[2017-07-11] MEDS: DOCUSATE SODIUM 50 MG/SENNA 8.6 MG TAB PO SCH ×2 (08:29→20:14)
[2017-07-11] MEDS: FOLIC ACID 1 MG TAB PO SCH (08:29)
[2017-07-11] MEDS: THIAMINE HCL 100 MG TAB PO SCH (08:29)
[2017-07-11] MEDS: FAMOTIDINE 20 MG TAB PO SCH ×2 (08:29→20:13)
[2017-07-11] MEDS: MULTIVITAMIN TAB PO SCH (08:29)
[2017-07-11] MEDS: REMOVE OLD PATCH T-DERMAL SCH (08:29)
[2017-07-11] MEDS: SODIUM CHLORIDE 0.9% FLUSH 10 ML FLUSH IV FLUSH SCH ×2 (08:30→20:14)
[2017-07-11 09:11] LABS: ALBUMIN 2.5 GM/DL (3.4-5.0); AST (GOT) 84 U/L (15-37); BICARBONATE 24.6 MEQ/L (21.0-32.0); BLOOD UREA NITROGEN 4 MG/DL (7-18); CALCIUM 9.1 MG/DL (8.5-10.1); CHLORIDE 107 MEQ/L (98-107); CREATININE 0.59 MG/DL (0.60-1.30); GLOMERULAR FILTRATION RATE 161 ML/MIN (>89); GLUCOSE,RANDOM 76 MG/DL (74-106); SODIUM (NA) 139 MEQ/L (136-145)
[2017-07-11 09:12] LABS: ALT (GPT) 88 U/L (12-78)
[2017-07-11 09:14] LABS: ALKALINE PHOSPHATASE 79 U/L (45-117); TOTAL BILIRUBIN ADULT 0.5 MG/DL (0.2-1.0); TOTAL PROTEIN 5.8 GM/DL (6.4-8.2)
--- NOTE | 2017-07-11 10:40 | HHI.PR ---
Subjective Remarks Follow-up alcohol withdrawal, pancreatitis. Patient states that he is still having tremors and is "sore all over". He states that he did not sleep much last night. Denies chest pain or dyspnea. Having abdominal pain in both lower quadrants. Objective Vitals Vital Signs Date Time Temp Pulse Resp B/P (MAP) Pulse Ox O2 Delivery O2 Flow Rate FiO2 07/11/17 08:00 97.9 62 20 134/96 (109) 99 07/11/17 07:00 Room Air 07/11/17 04:01 61 07/11/17 04:00 97.6 64 18 98/72 (81) 97 07/11/17 04:00 Room Air 07/11/17 00:00 97.9 63 18 117/80 (92) 98 07/10/17 23:46 60 07/10/17 21:03 Room Air 07/10/17 20:00 97.9 56 16 128/91 (103) 07/10/17 16:00 98.3 61 20 122/76 (91) 100 07/10/17 16:00 65 07/10/17 14:30 21 07/10/17 12:00 71 07/10/17 12:00 98.0 69 20 109/70 (83) 99 I/O 07/10/17 07/10/17 07/10/17 07/11/17 07/11/17 07/11/17 07:00 15:00 23:00 07:00 15:00 23:00 Intake Total 1900 ml 960 ml 1000 ml Output Total 2000 ml 750 ml 600 ml Balance -100 ml 210 ml 1000 ml -600 ml Intake Oral 900 ml 960 ml IV Total 1000 ml 1000 ml Output Urine Total 2000 ml 750 ml 600 ml # Bowel Movements 1 Result Diagram: 07/09/17 0621 07/11/17 0729 Imaging Last Impressions Liver Ultrasound 07/04/17 0220 Signed Impressions: Service Date/Time: Tuesday, July 04, 2017 08:49 - CONCLUSION: 1. Echogenic liver probably fatty infiltration 2. The gallbladder is prominent without stones.Sludge is evident. Armando Wolfe MD FACR Head CT 07/03/17 0000 Signed Impressions: Service Date/Time: Monday, July 03, 2017 22:50 - CONCLUSION: Mild atrophy. No acute findings in the brain. Cassius Sanchez MD Objective Remarks General: No acute distress. Mildly tremulous. Heart: Regular rate and rhythm. No murmur. Lungs: Clear to auscultation bilaterally. No wheezes, rales, or rhonchi. Breathing is nonlabored. Abdomen: Soft, mild tenderness in the lower abdomen without rebound or guarding , nondistended. Extremities: No lower extremity edema. Psych: Sleeping, but awakens and answers questions appropriately. Procedures None. Urinary Catheter: No Vascular Central Line Catheter: No A/P Problem List: (1) Alcohol abuse with alcohol-induced mood disorder ICD Code: F10.14 - Alcohol abuse with alcohol-induced mood disorder (2) Hyponatremia ICD Code: E87.1 - Hypo-osmolality and hyponatremia Status: Acute (3) Hypokalemia ICD Code: E87.6 - Hypokalemia Status: Acute (4) Pancreatitis ICD Code: K85.90 - Acute pancreatitis without necrosis or infection, unspecified Assessment and Plan 1. Alcohol abuse, withdrawal: Still having tremors, episodes of anxiety/ agitation. Continue CIWA protocol. Appreciate psychiatry recommendations. Withdrawal/seizure precautions. Continue Librium. Continue thiamine, folic acid, multivitamin. 2. Hyponatremia: Resolved. 3. Hypokalemia: Resolved. 4. Tobacco abuse: Nicotine patch. 5. Pancreatitis: Clinically improved. Lipase trending down. Continue IV fluids. Continue heart healthy diet. 6. DVT prophylaxis: Lovenox. Discharge Planning Pending further clinical improvement. Irwin Smart MD Jul 11, 2017 10:39
[2017-07-11] MEDS: LORazepam 1 MG TAB PO PRN ×3 (10:41→18:24)
[2017-07-11] MEDS: NS + KCL 20 MEQ INJ 1,000 ML IV SCH ×2 (11:09→22:00)
[2017-07-11] MEDS: ACETAMINOPHEN 325 MG TAB PO PRN (14:58)
[2017-07-12] VITALS (9 sets, daily range): BP systolic 120–134; BP diastolic 67–90; PULSE 63–86; RESP 18–20; TEMP 97.8–98.6; O2SAT 98–100
[2017-07-12] MEDS: LORazepam 2 MG TAB PO PRN ×6 (00:05→15:31)
[2017-07-12] MEDS: CHLORHEXIDINE GLUCONATE 2 % 1 PACK (2 CLOTHS) TOP SCH (03:41)
[2017-07-12] MEDS: NS + KCL 20 MEQ INJ 1,000 ML IV SCH ×2 (06:18→15:31)
[2017-07-12] MEDS: ENOXAPARIN SODIUM 40 MG/0.4 ML SYRINGE SQ SCH (06:18)
[2017-07-12] MEDS: DOCUSATE SODIUM 50 MG/SENNA 8.6 MG TAB PO SCH ×2 (09:00→21:00)
[2017-07-12] MEDS: MULTIVITAMIN TAB PO SCH (10:29)
[2017-07-12] MEDS: FOLIC ACID 1 MG TAB PO SCH (10:29)
[2017-07-12] MEDS: FAMOTIDINE 20 MG TAB PO SCH ×2 (10:29→21:09)
[2017-07-12] MEDS: THIAMINE HCL 100 MG TAB PO SCH (10:29)
[2017-07-12] MEDS: NICOTINE 14 MG/24 HR PATCH T-DERMAL SCH (10:33)
[2017-07-12] MEDS: SODIUM CHLORIDE 0.9% FLUSH 10 ML FLUSH IV FLUSH SCH ×2 (10:34→21:07)
[2017-07-12 12:49] LABS: HEPATITIS A AB IGM NEGATIVE (NEGATIVE); HEPATITIS B CORE AB IGM NEGATIVE (NEGATIVE)
--- NOTE | 2017-07-12 14:49 | HHI.PR ---
Subjective Remarks Follow up alcohol withdrawal. Patient still having CIWA scores of 11. States that at night he has worse symptoms. Now reporting diarrhea, although only 1 BM documented in the last 24 hours. Objective Vitals Vital Signs Date Time Temp Pulse Resp B/P (MAP) Pulse Ox O2 Delivery O2 Flow Rate FiO2 07/12/17 13:36 85 07/12/17 12:34 98.5 86 18 121/78 (92) 100 07/12/17 08:59 98.4 76 20 128/82 (97) 99 07/12/17 08:00 86 07/12/17 08:00 96 Room Air 21 07/12/17 04:00 98.0 69 18 120/67 (84) 98 07/12/17 04:00 80 07/12/17 04:00 Room Air 07/12/17 00:00 Room Air 07/12/17 00:00 69 07/11/17 23:53 98.2 64 16 112/79 (90) 100 07/11/17 20:00 98.1 71 16 145/92 (109) 98 07/11/17 20:00 Room Air 07/11/17 20:00 70 07/11/17 16:00 97.9 55 20 141/103 (116) 99 07/11/17 16:00 76 I/O 07/11/17 07/11/17 07/11/17 07/12/17 07/12/17 07/12/17 07:00 15:00 23:00 07:00 15:00 23:00 Intake Total 1000 ml 400 ml 2760 ml Output Total 600 ml 875 ml 1600 ml 700 ml Balance 1000 ml -200 ml 1885 ml -1600 ml -700 ml Intake Oral 960 ml IV Total 1000 ml 400 ml 1800 ml Output Urine Total 600 ml 875 ml 1600 ml 700 ml # Bowel Movements 1 Result Diagram: 07/09/17 0621 07/11/17 0729 Imaging Last Impressions Liver Ultrasound 07/04/17 0220 Signed Impressions: Service Date/Time: Tuesday, July 04, 2017 08:49 - CONCLUSION: 1. Echogenic liver probably fatty infiltration 2. The gallbladder is prominent without stones.Sludge is evident. Armando Wolfe MD FACR Head CT 07/03/17 0000 Signed Impressions: Service Date/Time: Monday, July 03, 2017 22:50 - CONCLUSION: Mild atrophy. No acute findings in the brain. Cassius Sanchez MD Objective Remarks General: No acute distress. Mildly tremulous. Heart: Regular rate and rhythm. No murmur. Lungs: Clear to auscultation bilaterally. No wheezes, rales, or rhonchi. Breathing is nonlabored. Abdomen: Soft, mild tenderness in the lower abdomen without rebound or guarding , nondistended. Extremities: No lower extremity edema. Psych: Alert, oriented. Procedures None. Urinary Catheter: No Vascular Central Line Catheter: No A/P Problem List: (1) Alcohol abuse with alcohol-induced mood disorder ICD Code: F10.14 - Alcohol abuse with alcohol-induced mood disorder (2) Hyponatremia ICD Code: E87.1 - Hypo-osmolality and hyponatremia Status: Acute (3) Hypokalemia ICD Code: E87.6 - Hypokalemia Status: Acute (4) Pancreatitis ICD Code: K85.90 - Acute pancreatitis without necrosis or infection, unspecified Assessment and Plan 1. Alcohol abuse, withdrawal: Still having tremors, episodes of anxiety/ agitation. Continue CIWA protocol. Appreciate psychiatry recommendations. Withdrawal/seizure precautions. Continue Librium. Continue thiamine, folic acid, multivitamin. ?Malingering? Reconsult psychiatry. 2. Hyponatremia: Resolved. 3. Hypokalemia: Resolved. 4. Tobacco abuse: Nicotine patch. 5. Pancreatitis: Clinically improved. Lipase trending down. Continue IV fluids. Continue heart healthy diet. 6. DVT prophylaxis: Lovenox. Discharge Planning Pending further clinical improvement. Irwin Smart MD Jul 12, 2017 14:49
[2017-07-12] MEDS: LORazepam 1 MG TAB PO PRN (21:54)
[2017-07-13] VITALS: BP 119/67; PULSE 80; PULSE 82; RESP 18; TEMP 98.5; O2SAT 97
[2017-07-13] MEDS: NS + KCL 20 MEQ INJ 1,000 ML IV SCH (02:43)
[2017-07-13] MEDS: CHLORHEXIDINE GLUCONATE 2 % 1 PACK (2 CLOTHS) TOP SCH (03:38)
[2017-07-13 03:53] VITALS: PULSE 65
[2017-07-13 04:00] VITALS: BP 116/72; PULSE 79; RESP 18; TEMP 98.6; O2SAT 96
[2017-07-13] MEDS: LORazepam 1 MG TAB PO PRN ×2 (05:03→10:38)
[2017-07-13] MEDS: ENOXAPARIN SODIUM 40 MG/0.4 ML SYRINGE SQ SCH (05:03)
[2017-07-13 08:00] VITALS: BP 135/88; PULSE 66; PULSE 78; RESP 18; TEMP 98; O2SAT 98
[2017-07-13] MEDS: THIAMINE HCL 100 MG TAB PO SCH (08:03)
[2017-07-13] MEDS: MULTIVITAMIN TAB PO SCH (08:04)
[2017-07-13] MEDS: DOCUSATE SODIUM 50 MG/SENNA 8.6 MG TAB PO SCH (08:04)
[2017-07-13] MEDS: FAMOTIDINE 20 MG TAB PO SCH (08:04)
[2017-07-13] MEDS: FOLIC ACID 1 MG TAB PO SCH (08:05)
[2017-07-13] MEDS: NICOTINE 14 MG/24 HR PATCH T-DERMAL SCH (08:06)
[2017-07-13] MEDS: REMOVE OLD PATCH T-DERMAL SCH (08:58)
[2017-07-13] MEDS: SODIUM CHLORIDE 0.9% FLUSH 10 ML FLUSH IV FLUSH SCH (08:58)
--- NOTE | 2017-07-13 10:16 | HHI.PR ---
Subjective Remarks Follow-up alcohol withdrawal. The patient states that he still had issues overnight, but it was a better night and he did get some sleep. States that he is still very shaky. No other complaints at this time. Objective Vitals Vital Signs Date Time Temp Pulse Resp B/P (MAP) Pulse Ox O2 Delivery O2 Flow Rate FiO2 07/13/17 08:00 98.0 66 18 135/88 (104) 98 07/13/17 07:00 Room Air 07/13/17 04:00 98.6 79 18 116/72 (87) 96 07/13/17 03:54 Room Air 07/13/17 03:53 65 07/13/17 00:00 98.5 82 18 119/67 (84) 97 07/13/17 00:00 80 07/13/17 00:00 Room Air 07/12/17 20:00 Room Air 07/12/17 20:00 98.6 67 18 134/90 (105) 100 07/12/17 20:00 79 07/12/17 16:42 97.8 70 18 133/87 (102) 98 07/12/17 16:00 63 07/12/17 13:36 85 07/12/17 12:34 98.5 86 18 121/78 (92) 100 I/O 07/12/17 07/12/17 07/12/17 07/13/17 07/13/17 07/13/17 07:00 15:00 23:00 07:00 15:00 23:00 Intake Total 1000 ml Output Total 1600 ml 700 ml 2000 ml 600 ml Balance -1600 ml -700 ml -2000 ml 400 ml IV Total 1000 ml Output Urine Total 1600 ml 700 ml 2000 ml 600 ml # Bowel Movements 0 0 Result Diagram: 07/09/17 0621 07/11/17 0729 Imaging Last Impressions Liver Ultrasound 07/04/17 0220 Signed Impressions: Service Date/Time: Tuesday, July 04, 2017 08:49 - CONCLUSION: 1. Echogenic liver probably fatty infiltration 2. The gallbladder is prominent without stones.Sludge is evident. Armando Wolfe MD FACR Head CT 07/03/17 0000 Signed Impressions: Service Date/Time: Monday, July 03, 2017 22:50 - CONCLUSION: Mild atrophy. No acute findings in the brain. Cassius Sanchez MD Objective Remarks General: No acute distress. Mildly tremulous. Heart: Regular rate and rhythm. No murmur. Lungs: Clear to auscultation bilaterally. No wheezes, rales, or rhonchi. Breathing is nonlabored. Abdomen: Soft, mild tenderness in the lower abdomen without rebound or guarding , nondistended. Extremities: No lower extremity edema. Psych: Alert, oriented. Procedures None. Urinary Catheter: No Vascular Central Line Catheter: No A/P Problem List: (1) Alcohol abuse with alcohol-induced mood disorder ICD Code: F10.14 - Alcohol abuse with alcohol-induced mood disorder (2) Hyponatremia ICD Code: E87.1 - Hypo-osmolality and hyponatremia Status: Acute (3) Hypokalemia ICD Code: E87.6 - Hypokalemia Status: Acute (4) Pancreatitis ICD Code: K85.90 - Acute pancreatitis without necrosis or infection, unspecified Assessment and Plan 1. Alcohol abuse, withdrawal: Still having tremors, episodes of anxiety/ agitation. Continue CIWA protocol. Seems to be improving slowly. Withdrawal/ seizure precautions. Continue Librium. Continue thiamine, folic acid, multivitamin. ?Malingering? Reconsult psychiatry. Discussed with Dr. Hook, who will reassess the patient. 2. Hyponatremia: Resolved. 3. Hypokalemia: Resolved. 4. Tobacco abuse: Nicotine patch. 5. Pancreatitis: Clinically improved. Lipase trending down. Continue IV fluids. Continue heart healthy diet. 6. DVT prophylaxis: Lovenox. 7. Unsteady gait: PT eval requested. Discharge Planning Pending further clinical improvement. Irwin Smart MD Jul 13, 2017 10:16
[2017-07-13] MEDS ORDERED: FOLI1TAB6 PO (10:29)
[2017-07-13] MEDS ORDERED: THIA100 PO (10:29)
[2017-07-13] MEDS ORDERED: FAMO20TA2 PO (10:29)
[2017-07-13] MEDS ORDERED: THERTAB15 PO (10:29)
--- NOTE | 2017-07-13 10:30 | HHI.DCPOC ---
Discharge Care Plan Diagnosis: (1) Elevated LFTs (2) Pancreatitis (3) Alcohol abuse with alcohol-induced mood disorder (4) Altered mental status (5) Hypokalemia (6) Metabolic alkalosis (7) Hyponatremia Goals to Promote Your Health * To prevent worsening of your condition and complications * To maintain your health at the optimal level Directions to Meet Your Goals Take your medications as prescribed Follow your dietary instruction Follow activity as directed Keep your appointments as scheduled Take your immunizations and boosters as scheduled If your symptoms worsen call your PCP, if no PCP go to Urgent Care Center or Emergency Room Smoking is Dangerous to Your Health. Avoid second hand smoke Call the 24-hour hour crisis hotline for domestic abuse at Irwin Smart MD Jul 13, 2017 10:30
--- NOTE | 2017-07-13 10:37 | HHI.DS ---
Discharge Summary Admission Date Jul 04, 2017 at 01:09 Discharge Date: Jul 13, 2017 Admitting Diagnosis Metabolic alkalosis, hypokalemia, hyponatremia, AMS (1) Alcohol abuse with alcohol-induced mood disorder ICD Code: F10.14 - Alcohol abuse with alcohol-induced mood disorder (2) Hyponatremia ICD Code: E87.1 - Hypo-osmolality and hyponatremia Status: Acute (3) Hypokalemia ICD Code: E87.6 - Hypokalemia Status: Acute (4) Pancreatitis ICD Code: K85.90 - Acute pancreatitis without necrosis or infection, unspecified Procedures None. Brief History - From Admission 31-year-old male with past medical history of alcohol dependence, homelessness, depression, anxiety. He was brought into [facility] emergency department after he was found asleep outside in hospital. He does not provide any medical history. Review of medical records indicates he was transferred from [facility] under [facility] and evaluated by psychiatry 06/09/17. He was discharged to [facility] for detox. He is hyponatremic with sodium of 123, hypokalemic at 2.5, metabolic alkalosis at 32.5. CT brain is negative. Alcohol level was 3. Clinical care medicine consultation has been requested. CBC/BMP: 07/09/17 0621 07/11/17 0729 Significant Findings Laboratory Tests Test 07/11/17 07:29 Blood Urea Nitrogen 4 MG/DL (7-18) Creatinine 0.59 MG/DL (0.60-1.30) Total Protein 5.8 GM/DL (6.4-8.2) Albumin 2.5 GM/DL (3.4-5.0) Aspartate Amino Transf (AST/SGOT) 84 U/L (15-37) Alanine Aminotransferase (ALT/SGPT) 88 U/L (12-78) Lipase 711 U/L (73-393) Imaging Last Impressions Liver Ultrasound 07/04/17 0220 Signed Impressions: Service Date/Time: Tuesday, July 04, 2017 08:49 - CONCLUSION: 1. Echogenic liver probably fatty infiltration 2. The gallbladder is prominent without stones.Sludge is evident. Armando Wolfe MD FACR Head CT 07/03/17 0000 Signed Impressions: Service Date/Time: Monday, July 03, 2017 22:50 - CONCLUSION: Mild atrophy. No acute findings in the brain. Cassius Sanchez MD PE at Discharge General: No acute distress. Mildly tremulous. Heart: Regular rate and rhythm. No murmur. Lungs: Clear to auscultation bilaterally. No wheezes, rales, or rhonchi. Breathing is nonlabored. Abdomen: Soft, mild tenderness in the lower abdomen without rebound or guarding , nondistended. Extremities: No lower extremity edema. Psych: Alert, oriented. Pt update on day of discharge Patient's nurse states that he has been ambulating in the room independently without difficulty. Hospital Course The patient was admitted to the critical care service for management of alcohol intoxication. Sodium and potassium were low. These were corrected with supplementation. Psychiatry was consulted and recommended outpatient alcohol rehab. He was continued on CIWA protocol and developed significant signs of withdrawal. He also had abdominal pain and lipase was elevated. He was continued on treatment for acute pancreatitis, which included nothing by mouth as well as IV fluids and pain control. Pancreatitis resolved. Lipase trended downward. The patient continued to require lorazepam per the CIKY protocol. Librium was added. The patient's symptoms did not seem to be improving. There was suspicion that the patient was malingering. Psychiatry reevaluated the patient and agreed that the patient was malingering. The patient was cleared for discharge home. Pt Condition on Discharge: Stable Discharge Disposition: Discharge Home Discharge Time: > 30 minutes Discharge Instructions DIET: Follow Instructions for: Heart Healthy Diet Activities you can perform: Regular-No Restrictions Follow up Referrals: Drug/Alcohol Rehab PCP Follow-up - 1 Week New Medications: Famotidine (Famotidine) 20 Mg Tab 20 MG PO Q12HR for Reflux, #60 TAB 0 Refills Folic Acid (Folic Acid) 1 Mg Tablet 1 MG PO DAILY for Nutritional Supplement, #30 TAB 0 Refills Multivitamin with Folic Acid (Thera Tablet) 400 Mcg Tablet 1 TAB PO DAILY for Nutritional Supplement, #30 TAB 0 Refills Thiamine HCl (Gnp Vitamin B-1) 100 Mg Tab 100 MG PO DAILY for Nutritional Supplement, #30 TAB 0 Refills Irwin Smart MD Jul 13, 2017 10:37
[2017-07-13 12:00] VITALS: BP 120/76; PULSE 92; RESP 20; TEMP 98.3; O2SAT 100
--- NOTE | 2017-07-13 12:29 | HHI.PYPN ---
Subjective Remarks Patient was seen today for psychiatric reevaluation. Patient was also discussed with primary treating attending. Psychiatric evaluation today the patient is found laying his bed, reading the menu of food, calm, superficially cooperative. The patient is not very happy to see me. He says that he does not need a psychiatry evaluation anymore. She reports that he has been an alcoholic for over 10 years, and he has not have any period Of sobriety since then. He says that the reason he takes alcohol is because he is a very anxious person, he was taken off his Xanax 2 mg 3 times per day "and I need to treat my anxiety without". Patient was very focused in trying to convince me to prescribe pain with Xanax, with a visible and objective drug-seeking behavior. He denies suicidal or homicidal ideation, he denies visual and auditory hallucinations. Patient was widely educated about the importance of engaging in a comprehensive rehabilitation program in order to treat his alcoholism and then look for psychiatric help. The patient is fully oriented 3, no fluctuation of consciousness, no attention deficit, no loosening of associations , delusions of paranoia present at this moment. I did not note any objective withdrawal symptoms of alcohol during this evaluation Review of Systems Except as stated in HPI: all other systems reviewed are Neg Mental Status Examination Appearance: Appropriate Consciousness: Alert Orientation: x4 Motor Activity: Normal gait Speech: Unremarkable Language: Adequate Fund of Knowledge: Adequate Attention and Concentration: Adequate Memory: Unremarkable Mood: Appropriate Affect: Appropriate Thought Process & Associations: Intact Thought Content: Appropriate Hallucination Type: None Delusion Type: None Suicidal Ideation: No Suicidal Plan: No Suicidal Intention: No Homicidal Ideation: No Homicidal Plan: No Homicidal Intention: No Insight: Adequate Judgment: Adequate Results Vitals/IOs Vital Signs Date Time Temp Pulse Resp B/P (MAP) Pulse Ox O2 Delivery O2 Flow Rate FiO2 07/13/17 08:00 98.0 66 18 135/88 (104) 98 07/13/17 07:00 Room Air 07/12/17 08:00 21 Intake and Output 07/13/17 07/13/17 07/14/17 08:00 16:00 00:00 Intake Total 1000 ml Output Total 600 ml Balance 400 ml Assessment & Plan Problem List: (1) Alcohol abuse with alcohol-induced mood disorder ICD Codes: F10.14 - Alcohol abuse with alcohol-induced mood disorder Assessment & Plan: On psychiatric evaluation the patient does not present any neuropsychiatric symptoms require an immediate psychiatric intervention at this moment. The patient denies suicidal or homicidal ideation, he denies visual and auditory hallucinations. There is evidence of obvious drug-seeking behavior during this evaluation, patient trying to get order and prescriptions for benzodiazepines. I did not recommend any further benzodiazepines or narcotics in this patient. He really benefits of a comprehensive rehabilitation program for alcoholism. 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 Support and psychoeducation provided. Assessment & Plan Estimated LOS: days Justification for Cont. Inpt. Patient does not need psychiatric hospitalization Brandon Hook MD Jul 13, 2017 12:29
== END 2017-07-13 13:50 | disposition home or self-care (01) | DRG 896 ==
LOC: NEPC 22:30 → NEDA 07-04 01:09 → HIME 07-04 03:22 → N04B 07-06 17:33
PROVIDERS: ADMIT Family Medicine; ATTEND Family Medicine
DX: F10.230 Alcohol dependence with withdrawal, uncomplicated (principal); K85.90 Acute pancreatitis without necrosis or infection, unspecified; E87.3 Alkalosis; E87.8 Other disorders of electrolyte and fluid balance, not elsewhere classified; E87.1 Hypo-osmolality and hyponatremia; R44.3 Hallucinations, unspecified; F10.24 Alcohol dependence with alcohol-induced mood disorder; E87.6 Hypokalemia; F41.9 Anxiety disorder, unspecified; D64.9 Anemia, unspecified; F17.210 Nicotine dependence, cigarettes, uncomplicated; R73.9 Hyperglycemia, unspecified; F32.9 Major depressive disorder, single episode, unspecified; Y90.0 Blood alcohol level of less than 20 mg/100 ml; Z23 Encounter for immunization; Z59.0 Homelessness; Z76.5 Malingerer [conscious simulation]
CPT/HCPCS: 36600; 70450; 76705; 80048; 80053; 80074; 80307; 81001; 82010; 82140; 82436; 82533; 82550; 82570; 82805; 83605; 83690; 83735; 83930; 83935; 84132; 84295; 84300; 84443; 85025; 85610; 85730; 87641; 90686; 90732; 96365; 96375; J1650; J2060; J2405; J3411; J3475; J3480; J7030; Q2038